=== PATIENT | female | born 1945 | race African-American/Black ===

== ENCOUNTER 2017-09-09 16:19 | Inpatient (IN) | payer MEDICARE, MEDICAID ==
[2017-09-09] MEDS ORDERED: NORMAL SALINE 1000 ML 1,000 ML IV PRN (16:28)
--- NOTE | 2017-09-09 16:29 | ER Document Report ---
ED General - General Stated Complaint: WEAKNESS Mode of Arrival: Stretcher Information source: Emergency Med Personnel TRAVEL OUTSIDE OF THE [place] IN LAST 30 DAYS: No - HPI Patient complains to provider of: Failure to thrive Onset/Duration: Gradual Quality of pain: Achy Severity: Mild Associated symptoms: Body/muscle aches, Weakness Exacerbated by: Denies Relieved by: Denies Notes: Patient is a 71-year-old female brought in by EMS and Adult Protective Services , presents to the emergency room today for possible failure to thrive, dehydration, she is basically bedbound at home, her recently suffered a stroke and has been in the hospital for the past 2 weeks, prognosis is poor for him, her 27-year-old autistic son has been attempting to care for Home, however patient does not appear to be well taking care of, as she appears to have lost some weight, she is contracted, she is dry, admits that she has not been eating or drinking as much as usual, and has had decreased urination, patient has no complaints at time of my exam initially, however after further questioning I was able to get this additional information, it was also supplied by the psychologist, Dr. Arshad who went out to the house to see patient today with law enforcement, patient does report generalized body aches and pains which are no different than her usual, denies any chest pain or shortness of breath, no abdominal pain, no nausea, vomiting or diarrhea - Related Data Allergies/Adverse Reactions: No Known Allergies Allergy (Verified 03/17/16 06:56) Home Medications: Current Home Medications Diclofenac Epolamine [Flector] 1 patch TD Q12 09/09/17 [History] Docusate Sodium [Colace 100 mg Capsule] 100 mg PO BID 09/09/17 [History] Tramadol HCl [Ultram 50 mg Tablet] 50 mg PO Q6HP PRN 09/09/17 [History] Past Medical History - General Information source: Patient - Social History Smoking Status: Never Smoker Family History: Reviewed & Not Pertinent Musculoskeltal Medical History: Reports Hx Arthritis - with significant contractures - RHEUMATOID ARTHRITIS Past Surgical History: Reports: Hx Cholecystectomy, Hx Hysterectomy - Immunizations Hx Diphtheria, Pertussis, Tetanus Vaccination: Yes Hx Pneumococcal Vaccination: 10/24/09 Review of Systems - Review of Systems Constitutional: See HPI EENT: No symptoms reported Cardiovascular: No symptoms reported Respiratory: No symptoms reported Gastrointestinal: Poor appetite, Poor fluid intake Genitourinary: See HPI Female Genitourinary: No symptoms reported Musculoskeletal: No symptoms reported Skin: No symptoms reported Hematologic/Lymphatic: No symptoms reported Neurological/Psychological: No symptoms reported -: Yes All other systems reviewed and negative Physical Exam - Vital signs Vitals: Pulse 89 09/09/17 16:25 Interpretation: Normal - General General appearance: Alert In distress: None Notes: Chronically ill-appearing - HEENT Head: Normocephalic, Atraumatic Eyes: Normal Conjunctiva: Normal Extraocular movements intact: Yes Eyelashes: Normal Pupils: PERRL Mucous membranes: Dry - Respiratory Respiratory status: No respiratory distress Chest status: Nontender Breath sounds: Normal Chest palpation: Normal - Cardiovascular Rhythm: Regular Heart sounds: Normal auscultation Murmur: No - Abdominal Inspection: Normal Distension: No distension Bowel sounds: Normal Tenderness: Nontender Organomegaly: No organomegaly - Back Back: Normal, Nontender - Extremities General upper extremity: Nontender, Normal color, Normal temperature, Other - Contracted General lower extremity: Nontender, Normal color, Normal temperature, Other - Contracted. No: Geo's sign - Neurological Neuro grossly intact: Yes Cognition: Normal Orientation: AAOx4 Doris Coma Scale Eye Opening: Spontaneous Haigler Coma Scale Verbal: Oriented Haigler Coma Scale Motor: Obeys Commands Haigler Coma Scale Total: 15 Speech: Normal Motor strength normal: LUE, RUE, LLE, RLE Sensory: Normal - Psychological Associated symptoms: Normal affect, Normal mood - Skin Skin Temperature: Warm Skin Moisture: Dry Skin Color: Normal Course - Re-evaluation Re-evalutation: 09/09/17 22:04 Patient was discussed with Dr. Kern who agrees to admit for dehydration with hypernatremia - Vital Signs Vital signs: Temp Pulse Resp BP Pulse Ox 98.1 F 89 20 122/71 100 09/09/17 16:58 09/09/17 16:25 09/09/17 21:01 09/09/17 21:01 09/09/17 17:01 - Laboratory Result Diagrams: 09/09/17 16:35 09/09/17 16:35 Laboratory results interpreted by me: 09/09/17 09/09/17 09/09/17 16:35 16:35 18:45 RBC 2.64 L Hgb 8.2 L Hct 23.2 L RDW 15.5 H Plt Count 129 L Sodium 150.9 H Potassium 3.5 L Chloride 116 H Carbon Dioxide 21 L Total Bilirubin 2.7 H Direct Bilirubin 1.1 H AST 52 H Alkaline Phosphatase 138 H Total Protein 8.9 H Urine Blood SMALL H Urine Urobilinogen 4.0 H - EKG Interpretation by Il EKG shows normal: Sinus rhythm Rate: Normal Rhythm: NSR Voltage: Consistant with LVH When compared to previous EKG there are: No significant change - Transfer of Care Care transferred to following provider: Concha Discharge - Discharge Clinical Impression: Dehydration Condition: Fair Disposition: ADMITTED INPATIENT Admitting Provider: Concha Unit Admitted: Medical Floor
[2017-09-09 16:55] LABS: HEMATOCRIT 23.2 % (36.0-47.0); HEMOGLOBIN 8.2 g/dL (12.0-15.5); HGB HCT DIFFERENCE 1.4; MEAN CORPUSCULAR HGB CONC 35.3 g/dL (32.0-36.0); MEAN CORPUSCULAR VOLUME 88 fl (80-97); RED BLOOD COUNT 2.64 10^6/uL (3.72-5.28); RED CELL DISTRIBUTION WIDTH 15.5 % (11.5-14.0)
[2017-09-09 17:10] LABS: ALANINE AMINOTRANSFERASE 20 U/L (9-52); ALBUMIN 3.6 g/dL (3.5-5.0); ALKALINE PHOSPHATASE 138 U/L (38-126); ANION GAP 14 (5-19); ASPARTATE AMINO TRANSFERASE 52 U/L (14-36); BILIRUBIN,DIRECT 1.1 mg/dL (0.0-0.4); BILIRUBIN,TOTAL 2.7 mg/dL (0.2-1.3); BLOOD UREA NITROGEN 12 mg/dL (7-20); CALCIUM 8.8 mg/dL (8.4-10.2); CARBON DIOXIDE 21 mmol/L (22-30); CHLORIDE 116 mmol/L (98-107); CREATINE KINASE 38 U/L (30-135); CREATININE RESULT 0.65 mg/dL (0.52-1.25); GLUCOSE 78 mg/dL (75-110); POTASSIUM 3.5 mmol/L (3.6-5.0); SODIUM 150.9 mmol/L (137-145); TOTAL PROTEIN 8.9 g/dL (6.3-8.2)
[2017-09-09 17:19] LABS: ABSOLUTE EOSINOPHILS# (MANUAL) 0.2 10^3/uL (0.0-0.6); BASOPHILS % (MANUAL) 0 % (0-2); EOSINOPHILS % (MANUAL) 2 % (0-6); LYMPHOCYTES % (MANUAL) 38 % (13-45); NUCLEATED RED BLOOD CELLS 13 /100 WBC (0); TOTAL CELLS COUNTED 100
[2017-09-09 17:21] LABS: CREATINE KINASE MB 0.74 ng/mL (<4.55)
[2017-09-09 17:22] LABS: ANISOCYTOSIS SLIGHT; OVALOCYTES SLIGHT; POIKILOCYTOSIS SLIGHT; SCHISTOCYTES 1+; TOXIC VACUOLATION PRESENT
[2017-09-09 17:23] LABS: TARGET CELLS 2+
[2017-09-09 17:25] LABS: WHITE BLOOD COUNT 7.5 10^3/uL (4.0-10.5)
[2017-09-09 17:30] LABS: TROPONIN I 0.051 ng/mL
--- NOTE | 2017-09-09 17:52 | RADIOLOGY REPORT (SQ) ---
EXAM DESCRIPTION: CHEST PA/LAT COMPLETED DATE/TIME: 09/09/2017 5:38 pm REASON FOR STUDY: cough COMPARISON: 10/23/2013 EXAM PARAMETERS: NUMBER OF VIEWS: two views TECHNIQUE: Digital Frontal and Lateral radiographic views of the chest acquired. RADIATION DOSE: NA LIMITATIONS: Patient positioning. FINDINGS: LUNGS AND PLEURA: No new opacities, masses or pneumothorax. No pleural effusion. MEDIASTINUM AND HILAR STRUCTURES: No masses or contour abnormalities. HEART AND VASCULAR STRUCTURES: Heart normal size. No evidence for failure. BONES: No acute findings. HARDWARE: None in the chest. OTHER: No other significant finding. IMPRESSION: NO ACUTE CARDIOPULMONARY PROCESS. NO SIGNIFICANT CHANGE FROM PRIOR STUDY. TECHNICAL DOCUMENTATION: JOB ID: [id number] [employer]- All Rights Reserved
[2017-09-09] MEDS ORDERED: NORMAL SALINE 250 ML IV PRN (19:00)
[2017-09-09 19:14] LABS: APPEARANCE,URINE CLEAR; BILIRUBIN,URINE NEGATIVE (NEGATIVE); GLUCOSE, URINE NEGATIVE (NEGATIVE); KETONES,URINE NEGATIVE (NEGATIVE); LEUKOCYTE ESTERASE,URINE NEGATIVE (NEGATIVE); NITRITE,URINE NEGATIVE (NEGATIVE); PROTEIN,URINE NEGATIVE (NEGATIVE); URINE SPECIFIC GRAVITY 1.009
--- NOTE | 2017-09-09 22:45 | EKG REPORT ---
SEVERITY:- ABNORMAL ECG - SINUS RHYTHM LEFT AXIS DEVIATION LEFT VENTRICULAR HYPERTROPHY : Confirmed by: Gustavo Stahl 09-Sep-2017 22:44:22
[2017-09-10] MEDS ORDERED: TRAMADOL HCL 50 MG TABLET PO PRN (00:36)
[2017-09-10] MEDS ORDERED: INFLUENZA ADLT QUAD (36MOS+) 2017-18 VAC 0.5 ML SYR IM PRN (04:10)
[2017-09-10] MEDS: LANSOPRAZOLE 30 MG TAB.RAP.DR PO SCH (06:28)
[2017-09-10] MEDS ORDERED: (PENDING PHARMACY ID) (Diclofenac Epolamine [Flector] 1 PATCH) TD SCH (10:00)
[2017-09-10] MEDS: DOCUSATE SODIUM 100 MG CAPSULE PO SCH ×2 (11:07→17:35)
[2017-09-10] MEDS: DEXTROSE 5%-NORMAL SALINE 1,000 ML IV PRN ×2 (11:07→22:06)
--- NOTE | 2017-09-10 11:09 | PDOC H&P ---
History of Present Illness Admission Date/PCP: 09/09/17 20:01 EVELINE SHIPLEY History of Present Illness: LOUISE FRANCO is a 71 year old female patient known to my practice who was brought to the ED by EMS and [facility] adult [facility] service She was due to worsening generalized weakness, inadequate oral intake and dehydration. Patient' s spouse was recently admitted to [facility] for stroke and independent living ability upon discharge is in question. Her spouse have been the main caregiver with few hours daily support through home health agency. Patient has been literally bedbound and in need of assistance for ADLs and IADL functions. She denied any chest pain, difficulty with breathing, coughing, fever or chills. No abdominal pain, nausea or vomiting. No dysuria or abdominal pain. No headache or dizziness. Her initial evaluation in the ED was remarkable for elevated serum sodium and pre-renal azotemia. She was advised admission for further evaluation and management. Past Medical History Musculoskeltal Medical History: Reports: Arthritis - with significant contractures - RHEUMATOID ARTHRITIS Psychiatric Medical History: Reports: Depression - anxiety Hematology: Reports: Anemia, Sickle Cell Disease - sickle cell trait Past Surgical History Past Surgical History: Reports: Cholecystectomy, Hysterectomy Social History Smoking Status: Never Smoker Frequency of Alcohol Use: None Hx Recreational Drug Use: No Drugs: None Hx Prescription Drug Abuse: No - Advance Directive Resuscitation Status: Full Code Family History Family History: Reviewed & Not Pertinent, CAD Parental Family History Reviewed: Yes Children Family History Reviewed: Yes Sibling(s) Family History Reviewed.: Yes Medication/Allergy Home Medications: Diclofenac Epolamine [Flector] 1 patch TD Q12 09/09/17 Docusate Sodium [Colace 100 mg Capsule] 100 mg PO BID 09/09/17 Tramadol HCl [Ultram 50 mg Tablet] 50 mg PO Q6HP PRN 09/09/17 Allergies/Adverse Reactions: No Known Allergies Allergy (Verified 03/17/16 06:56) Physical Exam Vital Signs: Temp Pulse Resp BP Pulse Ox 99.0 F 86 18 128/64 H 99 09/10/17 07:43 09/10/17 07:43 09/10/17 07:43 09/10/17 07:43 09/10/17 07:43 Intake & Output 09/09/17 09/10/17 09/11/17 06:59 06:59 06:59 Intake Total 582 Balance 582 Weight 29.2 kg General appearance: PRESENT: no acute distress, cooperative Head exam: PRESENT: atraumatic, normocephalic Eye exam: PRESENT: conjunctiva pink, EOMI, PERRLA. ABSENT: scleral icterus Ear exam: PRESENT: normal external ear exam Mouth exam: PRESENT: moist Teeth exam: PRESENT: poor dentation Cardiovascular exam: PRESENT: RRR. ABSENT: diastolic murmur, rubs, systolic murmur GI/Abdominal exam: PRESENT: normal bowel sounds, soft. ABSENT: distended, guarding, mass, organolmegaly, rebound, tenderness Extremities exam: ABSENT: full ROM, left AKA, right AKA, left BKA, right BKA, calf tenderness, joint swelling, pedal edema, tenderness, other Musculoskeletal exam: PRESENT: deformity - related to her rheumatoid arthritis Neurological exam: PRESENT: alert, awake, oriented to person, oriented to place , oriented to time, oriented to situation, CN II-XII grossly intact. ABSENT: motor sensory deficit Psychiatric exam: PRESENT: appropriate affect, normal mood. ABSENT: homicidal ideation, suicidal ideation Skin exam: PRESENT: dry, intact, warm. ABSENT: cyanosis, rash Results EKG Comments: I reviewed her laboratory report on [place] in my medical decision making. Impressions: Chest X-Ray 09/09/17 16:27 IMPRESSION: NO ACUTE CARDIOPULMONARY PROCESS. NO SIGNIFICANT CHANGE FROM PRIOR STUDY. Assessment & Plan - Diagnosis (1) Dehydration Is this a current diagnosis for this admission?: Yes Plan: See attending physician orders. (2) Adult failure to thrive syndrome Is this a current diagnosis for this admission?: Yes Plan: See attending physician orders. (3) Rheumatoid arthritis Qualifiers: Rheumatoid factor presence: unspecified presence Laterality: bilateral Is this a current diagnosis for this admission?: Yes Plan: See attending physician orders. (4) Chronic pain syndrome Is this a current diagnosis for this admission?: Yes Plan: See attending physician orders. - Time Time Spent: 50 to 70 Minutes Medications reviewed and adjusted accordingly: Yes Anticipated discharge: Other Within: Other - Inpatient Certification Based on my medical assessment, after consideration of the patient's comorbidities, presenting symptoms, or acuity I expect that the services needed warrant INPATIENT care.: Yes I certify that my determination is in accordance with my understanding of Medicare's requirements for reasonable and necessary INPATIENT services [42 CFR 412.3e].: Yes Medical Necessity: Need Close Monitoring Due to Risk of Patient Decompensation, Need For IV Fluids, Risk of Complication if Not Cared For in Hospital Post Hospital Care: D/C Assistant Front Desk Manager Documentation - Plan Summary Plan Summary: See attending physician orders.
[2017-09-10] MEDS ORDERED: POTASSIUM CHLORIDE 10 MEQ TABLET.SA PO ONE (11:11)
[2017-09-10 17:15] LABS: ANION GAP 12 (5-19); BLOOD UREA NITROGEN 6 mg/dL (7-20); CALCIUM 8.1 mg/dL (8.4-10.2); CARBON DIOXIDE 19 mmol/L (22-30); CHLORIDE 117 mmol/L (98-107); CREATININE RESULT 0.63 mg/dL (0.52-1.25); GLUCOSE 143 mg/dL (75-110); POTASSIUM 3.1 mmol/L (3.6-5.0); SODIUM 147.9 mmol/L (137-145)
[2017-09-11 05:39] LABS: HEMATOCRIT 19.7 % (36.0-47.0); MEAN CORPUSCULAR HEMOGLOBIN 31.2 pg (27.0-33.4); MEAN CORPUSCULAR HGB CONC 35.1 g/dL (32.0-36.0); MEAN CORPUSCULAR VOLUME 89 fl (80-97); RED BLOOD COUNT 2.22 10^6/uL (3.72-5.28); RED CELL DISTRIBUTION WIDTH 15.1 % (11.5-14.0)
[2017-09-11] MEDS: LANSOPRAZOLE 30 MG TAB.RAP.DR PO SCH (05:47)
[2017-09-11 06:07] LABS: ALANINE AMINOTRANSFERASE 20 U/L (9-52); ALBUMIN 2.4 g/dL (3.5-5.0); ALKALINE PHOSPHATASE 86 U/L (38-126); ANION GAP 10 (5-19); ASPARTATE AMINO TRANSFERASE 53 U/L (14-36); BILIRUBIN,DIRECT 0.4 mg/dL (0.0-0.4); BILIRUBIN,TOTAL 1.2 mg/dL (0.2-1.3); BLOOD UREA NITROGEN 6 mg/dL (7-20); CALCIUM 7.6 mg/dL (8.4-10.2); CARBON DIOXIDE 18 mmol/L (22-30); CHLORIDE 121 mmol/L (98-107); CREATININE RESULT 0.68 mg/dL (0.52-1.25); GLUCOSE 108 mg/dL (75-110); POTASSIUM 3.4 mmol/L (3.6-5.0); SODIUM 149.2 mmol/L (137-145); TOTAL PROTEIN 6.5 g/dL (6.3-8.2)
[2017-09-11 06:37] LABS: ABSOLUTE EOSINOPHILS# (MANUAL) 0.2 10^3/uL (0.0-0.6); BASOPHILS % (MANUAL) 0 % (0-2); EOSINOPHILS % (MANUAL) 2 % (0-6); LYMPHOCYTES % (MANUAL) 30 % (13-45); NUCLEATED RED BLOOD CELLS 3 /100 WBC (0); TOTAL CELLS COUNTED 100
[2017-09-11 06:41] LABS: ANISOCYTOSIS SLIGHT; OVALOCYTES SLIGHT; POIKILOCYTOSIS SLIGHT; SCHISTOCYTES SLIGHT; TARGET CELLS 2+
[2017-09-11 06:44] LABS: HEMOGLOBIN 6.9 g/dL (12.0-15.5)
[2017-09-11] MEDS: DEXTROSE 5%-NORMAL SALINE 1,000 ML IV PRN (10:36)
[2017-09-11] MEDS: DOCUSATE SODIUM 100 MG CAPSULE PO SCH ×2 (10:38→17:38)
--- NOTE | 2017-09-11 12:38 | PDOC PROGRESS REPORT ---
Subjective Progress Note for:: 09/11/17 Subjective:: Patient reported improvement in her clinical status. There is development of significant drop in her hemoglobin probably due to hemodilution from IV fluid infusion as well as possible chronic disease contribution. She denied any chest pain or difficulty with breathing. No abdominal pain, nausea or vomiting. No fever or chills. Physical Exam Vital Signs: Temp Pulse Resp BP Pulse Ox 99.0 F 96 16 138/85 H 98 09/11/17 07:41 09/11/17 07:41 09/11/17 07:41 09/11/17 07:41 09/11/17 07:41 Intake & Output 09/10/17 09/11/17 09/12/17 06:59 06:59 06:59 Intake Total 582 2146 Balance 582 2146 Weight 29.2 kg General appearance: PRESENT: no acute distress, cooperative Head exam: PRESENT: atraumatic, normocephalic Eye exam: PRESENT: conjunctiva pink, EOMI, PERRLA. ABSENT: scleral icterus Mouth exam: PRESENT: moist Respiratory exam: PRESENT: clear to auscultation sienna Cardiovascular exam: PRESENT: RRR. ABSENT: diastolic murmur, rubs, systolic murmur Vascular exam: PRESENT: normal capillary refill. ABSENT: pallor GI/Abdominal exam: PRESENT: normal bowel sounds, soft. ABSENT: distended, guarding, mass, organolmegaly, rebound, tenderness Extremities exam: ABSENT: pedal edema Musculoskeletal exam: PRESENT: deformity - related to contracture for rheumatoid arthritis deformities Neurological exam: PRESENT: alert, awake, oriented to person, oriented to place , oriented to time, oriented to situation, CN II-XII grossly intact. ABSENT: motor sensory deficit Psychiatric exam: PRESENT: appropriate affect, normal mood. ABSENT: homicidal ideation, suicidal ideation Skin exam: PRESENT: dry, intact, warm. ABSENT: cyanosis, rash Results Laboratory Results: 09/11/17 04:28 09/11/17 04:28 09/10/17 09/10/17 09/11/17 12:00 16:10 04:28 WBC 9.0 RBC 2.22 L Hgb 6.9 L Hct 19.7 L MCV 89 MCH 31.2 MCHC 35.1 RDW 15.1 H Plt Count 110 L Seg Neutrophils % Not Reportable Lymphocytes % Not Reportable Monocytes % Not Reportable Eosinophils % Not Reportable Basophils % Not Reportable Absolute Neutrophils Not Reportable Absolute Lymphocytes Not Reportable Absolute Monocytes Not Reportable Absolute Eosinophils Not Reportable Absolute Basophils Not Reportable Sodium 147.9 H Potassium 3.1 L Chloride 117 H Carbon Dioxide 19 L Anion Gap 12 BUN 6 L Creatinine 0.63 Est GFR ( Amer) > 60 Est GFR (Non-Af Amer) > 60 Glucose 143 H Calcium 8.1 L Magnesium 1.7 Total Bilirubin AST ALT Alkaline Phosphatase Total Protein Albumin Blood Type Antibody Screen 09/11/17 09/11/17 04:28 11:09 WBC RBC Hgb Hct MCV MCH MCHC RDW Plt Count Seg Neutrophils % Lymphocytes % Monocytes % Eosinophils % Basophils % Absolute Neutrophils Absolute Lymphocytes Absolute Monocytes Absolute Eosinophils Absolute Basophils Sodium 149.2 H Potassium 3.4 L Chloride 121 H Carbon Dioxide 18 L Anion Gap 10 BUN 6 L Creatinine 0.68 Est GFR ( Amer) > 60 Est GFR (Non-Af Amer) > 60 Glucose 108 Calcium 7.6 L Magnesium Total Bilirubin 1.2 AST 53 H ALT 20 Alkaline Phosphatase 86 Total Protein 6.5 Albumin 2.4 L Blood Type O POSITIVE Antibody Screen NEGATIVE Impressions: Chest X-Ray 09/09/17 16:27 IMPRESSION: NO ACUTE CARDIOPULMONARY PROCESS. NO SIGNIFICANT CHANGE FROM PRIOR STUDY. Assessment & Plan - Diagnosis (1) Dehydration Is this a current diagnosis for this admission?: Yes (2) Adult failure to thrive syndrome Is this a current diagnosis for this admission?: Yes (3) Rheumatoid arthritis Qualifiers: Rheumatoid factor presence: unspecified presence Laterality: bilateral Is this a current diagnosis for this admission?: Yes (4) Chronic pain syndrome Is this a current diagnosis for this admission?: Yes (5) Anemia of chronic disease Is this a current diagnosis for this admission?: Yes Plan: This was masked due to her dehydration upon admission. We will further evaluate as needed. (6) Anemia requiring transfusions Is this a current diagnosis for this admission?: Yes Plan: Patient will receive 2 units PRBC transfusion and post-transfusion CBC will direct need for further treatment. (7) Bacterial infection due to Proteus mirabilis Is this a current diagnosis for this admission?: Yes Plan: Urine culture did confirm Proteus mirabilis UTI. Start on IV Rocephin coverage base on sensitivity report on urine culture. - Time Time Spent with patient: 35 or more minutes Medications reviewed and adjusted accordingly: Yes Anticipated discharge: Home Within: Other - Inpatient Certification Based on my medical assessment, after consideration of the patient's comorbidities, presenting symptoms, or acuity I expect that the services needed warrant INPATIENT care.: Yes I certify that my determination is in accordance with my understanding of Medicare's requirements for reasonable and necessary INPATIENT services [42 CFR 412.3e].: Yes Medical Necessity: Need Close Monitoring Due to Risk of Patient Decompensation, Need For IV Fluids, Need For Continuous Telemetry Monitoring, Need for IV Antibiotics, Risk of Complication if Not Cared For in Hospital Post Hospital Care: D/C Email Designer Documentation - Plan Summary Plan Summary: See attending physician orders. I had extensive discussion with patient at bedside regarding disposition arrangement in view of her current home environment situation with her spouse of admission at [facility] for stroke and guarded prognosis for independent living when he is discharge.
[2017-09-11 22:32] LABS: HEMATOCRIT 33.1 % (36.0-47.0); HEMOGLOBIN 11.7 g/dL (12.0-15.5); MEAN CORPUSCULAR HEMOGLOBIN 31.9 pg (27.0-33.4); MEAN CORPUSCULAR HGB CONC 35.2 g/dL (32.0-36.0); MEAN CORPUSCULAR VOLUME 91 fl (80-97); RED BLOOD COUNT 3.66 10^6/uL (3.72-5.28); RED CELL DISTRIBUTION WIDTH 14.9 % (11.5-14.0); WHITE BLOOD COUNT 10.1 10^3/uL (4.0-10.5)
[2017-09-12] MEDS: LANSOPRAZOLE 30 MG TAB.RAP.DR PO SCH (06:06)
[2017-09-12] MEDS: DOCUSATE SODIUM 100 MG CAPSULE PO SCH ×2 (09:33→17:17)
[2017-09-12] MEDS: DEXTROSE 5%-NORMAL SALINE 1,000 ML IV PRN (10:54)
--- NOTE | 2017-09-12 10:57 | PDOC PROGRESS REPORT ---
Subjective Progress Note for:: 09/12/17 Subjective:: Patient is s/p 2 units PRBC transfusion. She denied any chest pain or difficulty with breathing. No abdominal pain, nausea or vomiting. No fever or chills. There is concern with blood pressure reading but it may be reflective of artifact due to developed muscle spasm and twitching during the blood pressure assessment procedure. Physical Exam Vital Signs: Temp Pulse Resp BP Pulse Ox 98.9 F 90 18 160/102 H 96 09/12/17 08:48 09/12/17 08:48 09/12/17 08:48 09/12/17 08:48 09/12/17 08:48 Intake & Output 09/11/17 09/12/17 09/13/17 06:59 06:59 06:59 Intake Total 2145 191 Balance 2145 191 Weight 29.2 kg Physical Exam: General appearance: PRESENT: no acute distress, cooperative Head exam: PRESENT: atraumatic, normocephalic Eye exam: PRESENT: conjunctiva pink, EOMI, PERRLA. ABSENT: scleral icterus Mouth exam: PRESENT: moist Respiratory exam: PRESENT: clear to auscultation sienna Cardiovascular exam: PRESENT: RRR. ABSENT: diastolic murmur, rubs, systolic murmur Vascular exam: PRESENT: normal capillary refill. ABSENT: pallor GI/Abdominal exam: PRESENT: normal bowel sounds, soft. ABSENT: distended, guarding, mass, organomegaly, rebound, tenderness Extremities exam: ABSENT: pedal edema Musculoskeletal exam: PRESENT: deformity - related to contracture for rheumatoid arthritis deformities Neurological exam: PRESENT: alert, awake, oriented to person, oriented to place , oriented to time, oriented to situation, CN II-XII grossly intact. ABSENT: motor sensory deficit Psychiatric exam: PRESENT: appropriate affect, normal mood. ABSENT: homicidal ideation, suicidal ideation Skin exam: PRESENT: dry, intact, warm. ABSENT: cyanosis, rash Results Laboratory Results: 09/11/17 22:13 09/11/17 04:28 09/11/17 09/11/17 11:09 22:13 WBC 10.1 RBC 3.66 L Hgb 11.7 L D Hct 33.1 L MCV 91 MCH 31.9 MCHC 35.2 RDW 14.9 H Plt Count 155 Blood Type O POSITIVE Antibody Screen NEGATIVE Impressions: Chest X-Ray 09/09/17 16:27 IMPRESSION: NO ACUTE CARDIOPULMONARY PROCESS. NO SIGNIFICANT CHANGE FROM PRIOR STUDY. Assessment & Plan - Diagnosis (1) Dehydration Is this a current diagnosis for this admission?: Yes (2) Adult failure to thrive syndrome Is this a current diagnosis for this admission?: Yes (3) Rheumatoid arthritis Qualifiers: Rheumatoid factor presence: unspecified presence Laterality: bilateral Is this a current diagnosis for this admission?: Yes (4) Chronic pain syndrome Is this a current diagnosis for this admission?: Yes (5) Anemia of chronic disease Is this a current diagnosis for this admission?: Yes (6) Anemia requiring transfusions Is this a current diagnosis for this admission?: Yes (7) Bacterial infection due to Proteus mirabilis Is this a current diagnosis for this admission?: Yes - Time Time Spent with patient: 25-34 minutes Medications reviewed and adjusted accordingly: Yes Anticipated discharge: Other Within: Other - Inpatient Certification Based on my medical assessment, after consideration of the patient's comorbidities, presenting symptoms, or acuity I expect that the services needed warrant INPATIENT care.: Yes I certify that my determination is in accordance with my understanding of Medicare's requirements for reasonable and necessary INPATIENT services [42 CFR 412.3e].: Yes Medical Necessity: Need Close Monitoring Due to Risk of Patient Decompensation, Need For IV Fluids, Need for IV Antibiotics, Risk of Complication if Not Cared For in Hospital Post Hospital Care: D/C Psych Social Worker Documentation - Plan Summary Plan Summary: See attending physician orders. Repeat CBC with diff and CMP in am.
[2017-09-12] MEDS: CEFTRIAXONE 1 GM/D5W RTU 1 GM/50 ML RTUPB IV SCH (12:37)
[2017-09-13] MEDS: DEXTROSE 5%-NORMAL SALINE 1,000 ML IV PRN ×3 (05:36→21:31)
[2017-09-13] MEDS: LANSOPRAZOLE 30 MG TAB.RAP.DR PO SCH (05:36)
[2017-09-13] MEDS: DOCUSATE SODIUM 100 MG CAPSULE PO SCH ×2 (10:37→17:07)
[2017-09-13] MEDS: CEFTRIAXONE 1 GM/D5W RTU 1 GM/50 ML RTUPB IV SCH (17:02)
--- NOTE | 2017-09-13 17:51 | PDOC PROGRESS REPORT ---
Subjective Progress Note for:: 09/13/17 Subjective:: Patient denied any chest pain or difficulty with breathing. No abdominal pain, nausea or vomiting. No fever or chills. She remain on IV Rocephin coverage. Further discussion with APS staff, Elsa, regarding her disposition took place since last clinical evaluation. Patient reported that she identified someone that can provide care privately to cover her 24/7 need. Physical Exam Vital Signs: Temp Pulse Resp BP Pulse Ox 98.6 F 80 22 H 176/82 H 100 09/13/17 07:34 09/13/17 07:34 09/13/17 07:34 09/13/17 07:34 09/13/17 07:34 Intake & Output 09/12/17 09/13/17 09/14/17 06:59 06:59 06:59 Intake Total 1914 1980 Output Total 3200 Balance 1914 -1220 Weight 29.2 kg Physical Exam: General appearance: PRESENT: no acute distress, cooperative Head exam: PRESENT: atraumatic, normocephalic Eye exam: PRESENT: conjunctiva pink, EOMI, PERRLA. ABSENT: scleral icterus Mouth exam: PRESENT: moist Respiratory exam: PRESENT: clear to auscultation sienna Cardiovascular exam: PRESENT: RRR. ABSENT: diastolic murmur, rubs, systolic murmur Vascular exam: PRESENT: normal capillary refill. ABSENT: pallor GI/Abdominal exam: PRESENT: normal bowel sounds, soft. ABSENT: distended, guarding, mass, organomegaly, rebound, tenderness Extremities exam: ABSENT: pedal edema Musculoskeletal exam: PRESENT: deformity - related to contracture for rheumatoid arthritis deformities Neurological exam: PRESENT: alert, awake, oriented to person, oriented to place , oriented to time, oriented to situation, CN II-XII grossly intact. ABSENT: motor sensory deficit Psychiatric exam: PRESENT: appropriate affect, normal mood. ABSENT: homicidal ideation, suicidal ideation Skin exam: PRESENT: dry, intact, warm. ABSENT: cyanosis, rash Results Laboratory Results: 09/11/17 22:13 09/11/17 04:28 Impressions: Chest X-Ray 09/09/17 16:27 IMPRESSION: NO ACUTE CARDIOPULMONARY PROCESS. NO SIGNIFICANT CHANGE FROM PRIOR STUDY. Assessment & Plan - Diagnosis (1) Dehydration Is this a current diagnosis for this admission?: Yes (2) Adult failure to thrive syndrome Is this a current diagnosis for this admission?: Yes (3) Rheumatoid arthritis Qualifiers: Rheumatoid factor presence: unspecified presence Laterality: bilateral Is this a current diagnosis for this admission?: Yes (4) Chronic pain syndrome Is this a current diagnosis for this admission?: Yes (5) Anemia of chronic disease Is this a current diagnosis for this admission?: Yes (6) Anemia requiring transfusions Is this a current diagnosis for this admission?: Yes (7) Bacterial infection due to Proteus mirabilis Is this a current diagnosis for this admission?: Yes - Time Time Spent with patient: 25-34 minutes Medications reviewed and adjusted accordingly: Yes Anticipated discharge: Home Within: within 48 hours - Inpatient Certification Based on my medical assessment, after consideration of the patient's comorbidities, presenting symptoms, or acuity I expect that the services needed warrant INPATIENT care.: Yes I certify that my determination is in accordance with my understanding of Medicare's requirements for reasonable and necessary INPATIENT services [42 CFR 412.3e].: Yes Medical Necessity: Need Close Monitoring Due to Risk of Patient Decompensation, Need For IV Fluids, Need For Continuous Telemetry Monitoring, Need for IV Antibiotics, Risk of Complication if Not Cared For in Hospital Post Hospital Care: D/C Sailing Officer Documentation - Plan Summary Plan Summary: Continue IV fluid support and antibiotic coverage. I will discuss with landscape architect and planner and APS to confirm stated arrange before discharge plan can be initiated. Maintain on all current medication management. Obtain CBC with diff and BMP in AM.
[2017-09-14 05:24] LABS: ABSOLUTE BASOPHILS # (AUTO) 0.1 10^3/uL (0.0-0.2); ABSOLUTE EOSINOPHILS # (AUTO) 0.5 10^3/uL (0.0-0.6); ABSOLUTE LYMPHOCYTES (AUTO) 2.9 10^3/uL (0.5-4.7); ABSOLUTE MONOCYTES (AUTO) 0.7 10^3/uL (0.1-1.4); ABSOLUTE NEUT (AUTO) 4.2 10^3/uL (1.7-8.2); BASOPHILS % (AUTO) 1.2 % (0-2); EOSINOPHILS % (AUTO) 5.8 % (0-6); HEMATOCRIT 31.6 % (36.0-47.0); HEMOGLOBIN 11.4 g/dL (12.0-15.5); HGB HCT DIFFERENCE 2.6; MEAN CORPUSCULAR HEMOGLOBIN 32.5 pg (27.0-33.4); MEAN CORPUSCULAR HGB CONC 36.1 g/dL (32.0-36.0); MEAN CORPUSCULAR VOLUME 90 fl (80-97); MONOCYTES % (AUTO) 8.3 % (3-13); RED BLOOD COUNT 3.51 10^6/uL (3.72-5.28); RED CELL DISTRIBUTION WIDTH 15.9 % (11.5-14.0); SEGMENTED NEUTROPHILS % (AUTO) 50.7 % (42-78)
[2017-09-14 05:30] LABS: ANION GAP 9 (5-19); BLOOD UREA NITROGEN 5 mg/dL (7-20); CALCIUM 7.3 mg/dL (8.4-10.2); CARBON DIOXIDE 19 mmol/L (22-30); CHLORIDE 120 mmol/L (98-107); CREATININE RESULT 0.56 mg/dL (0.52-1.25); GLUCOSE 93 mg/dL (75-110); POTASSIUM 3.3 mmol/L (3.6-5.0); SODIUM 148.4 mmol/L (137-145)
[2017-09-14] MEDS: LANSOPRAZOLE 30 MG TAB.RAP.DR PO SCH (05:40)
[2017-09-14 06:19] LABS: WHITE BLOOD COUNT 8.4 10^3/uL (4.0-10.5)
[2017-09-14] MEDS: DEXTROSE 5%-NORMAL SALINE 1,000 ML IV PRN ×2 (08:44→22:16)
[2017-09-14] MEDS: DOCUSATE SODIUM 100 MG CAPSULE PO SCH ×2 (13:51→17:25)
[2017-09-14] MEDS: CEFTRIAXONE 1 GM/D5W RTU 1 GM/50 ML RTUPB IV SCH (13:59)
--- NOTE | 2017-09-14 18:18 | PDOC PROGRESS REPORT ---
Subjective Progress Note for:: 09/14/17 Subjective:: Patient denied chest pain or difficulty with breathing. No abdominal pain, nausea or vomiting. No fever or chills. She remain on IV Rocephin coverage. Patient reported arranging for a private health care sanitary technician at home upon discharge. I will request for psychiatry consultation regarding her competency assessment. Physical Exam Vital Signs: Temp Pulse Resp BP Pulse Ox 98.7 F 80 22 H 160/75 H 97 09/14/17 11:58 09/14/17 11:58 09/14/17 11:58 09/14/17 11:58 09/14/17 11:58 Intake & Output 09/13/17 09/14/17 09/15/17 06:59 06:59 06:59 Intake Total 1980 3516 Output Total 3200 2220 Balance -1220 1296 Weight 29.2 kg Physical Exam: General appearance: PRESENT: no acute distress, cooperative Head exam: PRESENT: atraumatic, normocephalic Eye exam: PRESENT: conjunctiva pink, EOMI, PERRLA. ABSENT: scleral icterus Mouth exam: PRESENT: moist Respiratory exam: PRESENT: clear to auscultation sienna Cardiovascular exam: PRESENT: RRR. ABSENT: diastolic murmur, rubs, systolic murmur Vascular exam: PRESENT: normal capillary refill. ABSENT: pallor GI/Abdominal exam: PRESENT: normal bowel sounds, soft. ABSENT: distended, guarding, mass, organomegaly, rebound, tenderness Extremities exam: ABSENT: pedal edema Musculoskeletal exam: PRESENT: deformity - related to contracture for rheumatoid arthritis deformities Neurological exam: PRESENT: alert, awake, oriented to person, oriented to place , oriented to time, oriented to situation, CN II-XII grossly intact. ABSENT: motor sensory deficit Psychiatric exam: PRESENT: appropriate affect, normal mood. ABSENT: homicidal ideation, suicidal ideation Skin exam: PRESENT: dry, intact, warm. ABSENT: cyanosis, rash Results Laboratory Results: 09/14/17 04:04 09/14/17 04:04 09/14/17 09/14/17 04:04 04:04 WBC 8.4 RBC 3.51 L Hgb 11.4 L Hct 31.6 L MCV 90 MCH 32.5 MCHC 36.1 H RDW 15.9 H Plt Count 134 L Seg Neutrophils % 50.7 Lymphocytes % 34.0 Monocytes % 8.3 Eosinophils % 5.8 Basophils % 1.2 Absolute Neutrophils 4.2 Absolute Lymphocytes 2.9 Absolute Monocytes 0.7 Absolute Eosinophils 0.5 Absolute Basophils 0.1 Sodium 148.4 H Potassium 3.3 L Chloride 120 H Carbon Dioxide 19 L Anion Gap 9 BUN 5 L Creatinine 0.56 Est GFR ( Amer) > 60 Est GFR (Non-Af Amer) > 60 Glucose 93 Calcium 7.3 L Impressions: Chest X-Ray 09/09/17 16:27 IMPRESSION: NO ACUTE CARDIOPULMONARY PROCESS. NO SIGNIFICANT CHANGE FROM PRIOR STUDY. Assessment & Plan - Diagnosis (1) Dehydration Is this a current diagnosis for this admission?: Yes Plan: Improved with IV fluid support. (2) Adult failure to thrive syndrome Is this a current diagnosis for this admission?: Yes (3) Rheumatoid arthritis Qualifiers: Rheumatoid factor presence: unspecified presence Laterality: bilateral Is this a current diagnosis for this admission?: Yes (4) Chronic pain syndrome Is this a current diagnosis for this admission?: Yes (5) Anemia of chronic disease Is this a current diagnosis for this admission?: Yes (6) Anemia requiring transfusions Is this a current diagnosis for this admission?: Yes (7) Bacterial infection due to Proteus mirabilis Is this a current diagnosis for this admission?: Yes (8) Hypopotassemia Is this a current diagnosis for this admission?: Yes Plan: Patient will receive potassium replacement therapy. Obtain serum magnesium level. Repeat BMP in am. - Time Time Spent with patient: 25-34 minutes Medications reviewed and adjusted accordingly: Yes Anticipated discharge: Home Within: Other - Inpatient Certification Based on my medical assessment, after consideration of the patient's comorbidities, presenting symptoms, or acuity I expect that the services needed warrant INPATIENT care.: Yes I certify that my determination is in accordance with my understanding of Medicare's requirements for reasonable and necessary INPATIENT services [42 CFR 412.3e].: Yes Medical Necessity: Need Close Monitoring Due to Risk of Patient Decompensation, Need For IV Fluids, Need For Continuous Telemetry Monitoring, Need for IV Antibiotics, Risk of Complication if Not Cared For in Hospital Post Hospital Care: D/C Hearing Healthcare Practitioner Documentation - Plan Summary Plan Summary: Continue antibiotic therapy. Follow up on culture reports. Discussed with social melissa from [facility] regarding patient's spouse on admission at the facility. No new input. Patient need to agree to go to SNF as resident or APS need court sanction to place her in SNF. I will obtain psych consult for competency evaluation.
[2017-09-14] MEDS: POTASSIUM CHLORIDE 10 MEQ TABLET.SA PO SCH ×2 (22:17→23:46)
[2017-09-15] MEDS: LANSOPRAZOLE 30 MG TAB.RAP.DR PO SCH (06:06)
[2017-09-15 07:53] LABS: ANION GAP 9 (5-19); BLOOD UREA NITROGEN 7 mg/dL (7-20); CALCIUM 7.6 mg/dL (8.4-10.2); CARBON DIOXIDE 22 mmol/L (22-30); CHLORIDE 118 mmol/L (98-107); CREATININE RESULT 0.62 mg/dL (0.52-1.25); GLUCOSE 84 mg/dL (75-110); MAGNESIUM 1.5 mg/dL (1.6-2.3); POTASSIUM 4.4 mmol/L (3.6-5.0); SODIUM 148.8 mmol/L (137-145)
--- NOTE | 2017-09-15 10:30 | PDOC PROGRESS REPORT ---
Subjective Progress Note for:: 09/15/17 Subjective:: Patient is currently doing fair patient is a very contractured due to the rheumatoid arthritis and chronic pain Patient's currently on IV fluid and admitted because of the severe dehydration's Physical Exam Vital Signs: Temp Pulse Resp BP Pulse Ox 98.4 F 109 H 18 155/106 H 99 09/15/17 08:00 09/15/17 08:00 09/15/17 08:00 09/15/17 08:00 09/15/17 08:00 Intake & Output 09/14/17 09/15/17 09/16/17 06:59 06:59 06:59 Intake Total 3516 2385 Output Total 2220 2640 Balance 1296 -255 General appearance: PRESENT: no acute distress Eye exam: PRESENT: PERRLA Mouth exam: PRESENT: neck supple Respiratory exam: PRESENT: clear to auscultation sienna Cardiovascular exam: PRESENT: +S1, +S2 GI/Abdominal exam: PRESENT: normal bowel sounds, soft Extremities exam: ABSENT: pedal edema Additional comments: Contracture upper and lower extremity Neurological exam: PRESENT: alert, awake, oriented to person, oriented to place Results Laboratory Results: 09/14/17 04:04 09/15/17 07:22 09/14/17 09/15/17 04:04 07:22 Sodium 148.8 H Potassium 4.4 Chloride 118 H Carbon Dioxide 22 Anion Gap 9 BUN 7 Creatinine 0.62 Est GFR ( Amer) > 60 Est GFR (Non-Af Amer) > 60 Glucose 84 Calcium 7.6 L Magnesium 1.4 L 1.5 L Impressions: Chest X-Ray 09/09/17 16:27 IMPRESSION: NO ACUTE CARDIOPULMONARY PROCESS. NO SIGNIFICANT CHANGE FROM PRIOR STUDY. Assessment & Plan - Diagnosis (1) Hypertension Qualifiers: Hypertension type: unspecified Qualified Code(s): I10 - Essential (primary ) hypertension Is this a current diagnosis for this admission?: Yes Plan: The patient on Norvasc 2.5 mg p.o. twice a day (2) Anemia of chronic disease Is this a current diagnosis for this admission?: Yes Plan: Currently stable (3) Dehydration Is this a current diagnosis for this admission?: Yes Plan: Continues to IV fluid (4) Rheumatoid arthritis Qualifiers: Rheumatoid factor presence: unspecified presence Laterality: bilateral Is this a current diagnosis for this admission?: Yes (5) Adult failure to thrive syndrome Is this a current diagnosis for this admission?: Yes (6) Chronic pain syndrome Is this a current diagnosis for this admission?: Yes - Time Time Spent with patient: 15-24 minutes Medications reviewed and adjusted accordingly: Yes Anticipated discharge: Other Within: Other - Inpatient Certification Medical Necessity: Need For IV Fluids Post Hospital Care: D/C Neon Sign Maker Documentation - Plan Summary Plan Summary: See other MD orders
[2017-09-15] MEDS ORDERED: MAGNESIUM SULFATE/D5W 1 GM/100 ML RTUPB IV ONE (11:30)
[2017-09-15] MEDS: CEFTRIAXONE 1 GM/D5W RTU 1 GM/50 ML RTUPB IV SCH (11:50)
[2017-09-15] MEDS: DOCUSATE SODIUM 100 MG CAPSULE PO SCH ×2 (11:51→18:11)
[2017-09-15] MEDS: DEXTROSE 5%-NORMAL SALINE 1,000 ML IV PRN (18:13)
[2017-09-15] MEDS: AMLODIPINE BESYLATE 2.5 MG TABLET PO SCH (21:30)
[2017-09-16 05:21] LABS: ABSOLUTE BASOPHILS # (AUTO) 0.1 10^3/uL (0.0-0.2); ABSOLUTE EOSINOPHILS # (AUTO) 0.4 10^3/uL (0.0-0.6); ABSOLUTE MONOCYTES (AUTO) 0.6 10^3/uL (0.1-1.4); ABSOLUTE NEUT (AUTO) 4.1 10^3/uL (1.7-8.2); BASOPHILS % (AUTO) 0.7 % (0-2); EOSINOPHILS % (AUTO) 6.1 % (0-6); HEMATOCRIT 31.5 % (36.0-47.0); HEMOGLOBIN 11.3 g/dL (12.0-15.5); HGB HCT DIFFERENCE 2.4; LYMPHOCYTES % (AUTO) 27.7 % (13-45); MEAN CORPUSCULAR HEMOGLOBIN 32.2 pg (27.0-33.4); MEAN CORPUSCULAR HGB CONC 35.8 g/dL (32.0-36.0); MEAN CORPUSCULAR VOLUME 90 fl (80-97); MONOCYTES % (AUTO) 7.7 % (3-13); SEGMENTED NEUTROPHILS % (AUTO) 57.8 % (42-78); WHITE BLOOD COUNT 7.1 10^3/uL (4.0-10.5)
[2017-09-16] MEDS: LANSOPRAZOLE 30 MG TAB.RAP.DR PO SCH (05:32)
[2017-09-16 05:34] LABS: ANION GAP 9 (5-19); BLOOD UREA NITROGEN 11 mg/dL (7-20); CALCIUM 7.8 mg/dL (8.4-10.2); CARBON DIOXIDE 22 mmol/L (22-30); CHLORIDE 115 mmol/L (98-107); CREATININE RESULT 0.71 mg/dL (0.52-1.25); GLUCOSE 99 mg/dL (75-110); POTASSIUM 3.8 mmol/L (3.6-5.0); SODIUM 146.2 mmol/L (137-145)
[2017-09-16] MEDS: DOCUSATE SODIUM 100 MG CAPSULE PO SCH ×2 (09:04→17:59)
[2017-09-16] MEDS: AMLODIPINE BESYLATE 2.5 MG TABLET PO SCH ×2 (09:04→22:33)
--- NOTE | 2017-09-16 10:42 | PDOC PROGRESS REPORT ---
Subjective Progress Note for:: 09/16/17 Subjective:: Patient is currently doing fair Patient's p.o. intake is also fair Since blood pressure is coming down to 140 range after start taking the Norvasc Physical Exam Vital Signs: Temp Pulse Resp BP Pulse Ox 98.6 F 73 20 145/76 H 100 09/16/17 08:09 09/16/17 08:09 09/16/17 08:09 09/16/17 08:09 09/16/17 08:09 Intake & Output 09/15/17 09/16/17 09/17/17 06:59 06:59 06:59 Intake Total 2385 1878 Output Total 2640 1200 Balance -255 678 General appearance: PRESENT: no acute distress, other - Very contracture Eye exam: PRESENT: PERRLA Mouth exam: PRESENT: dry mucosa Respiratory exam: PRESENT: clear to auscultation sienna Cardiovascular exam: PRESENT: +S1, +S2 GI/Abdominal exam: PRESENT: normal bowel sounds, soft Extremities exam: PRESENT: pedal edema Neurological exam: PRESENT: alert, awake, oriented to person, oriented to place Psychiatric exam: PRESENT: anxious Results Laboratory Results: 09/16/17 04:05 09/16/17 04:05 09/16/17 09/16/17 04:05 04:05 WBC 7.1 RBC 3.50 L Hgb 11.3 L Hct 31.5 L MCV 90 MCH 32.2 MCHC 35.8 RDW 16.0 H Plt Count 125 L Seg Neutrophils % 57.8 Lymphocytes % 27.7 Monocytes % 7.7 Eosinophils % 6.1 H Basophils % 0.7 Absolute Neutrophils 4.1 Absolute Lymphocytes 2.0 Absolute Monocytes 0.6 Absolute Eosinophils 0.4 Absolute Basophils 0.1 Sodium 146.2 H Potassium 3.8 Chloride 115 H Carbon Dioxide 22 Anion Gap 9 BUN 11 Creatinine 0.71 Est GFR ( Amer) > 60 Est GFR (Non-Af Amer) > 60 Glucose 99 Calcium 7.8 L Impressions: Chest X-Ray 09/09/17 16:27 IMPRESSION: NO ACUTE CARDIOPULMONARY PROCESS. NO SIGNIFICANT CHANGE FROM PRIOR STUDY. Assessment & Plan - Diagnosis (1) Hypertension Qualifiers: Hypertension type: unspecified Qualified Code(s): I10 - Essential (primary ) hypertension Is this a current diagnosis for this admission?: Yes Plan: Currently all improving (2) Anemia of chronic disease Is this a current diagnosis for this admission?: Yes Plan: Currently stable (3) Dehydration Is this a current diagnosis for this admission?: Yes Plan: Continues to IV fluid (4) Rheumatoid arthritis Qualifiers: Rheumatoid factor presence: unspecified presence Laterality: bilateral Is this a current diagnosis for this admission?: Yes (5) Adult failure to thrive syndrome Is this a current diagnosis for this admission?: Yes (6) Chronic pain syndrome Is this a current diagnosis for this admission?: Yes - Time Time Spent with patient: 15-24 minutes Medications reviewed and adjusted accordingly: Yes Anticipated discharge: Other Within: Other - Inpatient Certification Medical Necessity: Need Close Monitoring Due to Risk of Patient Decompensation - Plan Summary Plan Summary: As to current medications
[2017-09-16] MEDS: CEFTRIAXONE 1 GM/D5W RTU 1 GM/50 ML RTUPB IV SCH (12:12)
[2017-09-16] MEDS: DEXTROSE 5%-NORMAL SALINE 1,000 ML IV PRN (16:30)
--- NOTE | 2017-09-16 17:55 | PSYCHOLOGICAL NOTE ---
Psych Note - Psych Note Psych Note: CAPACITY EVALUATION Initially met with Patient at her house when referred the case by DSS secondary to her being admitted to ICU at [facility] for a stroke and blood clot near the heart. He is in a medically induced coma and unlikely to recover. Patient was living with her grandson who was acting as her caregiver, but is Autistic and not capable of appropriately meeting her needs. Patient receives CAP Services 6 hours per day from 8a-12p and 5p-7p, and this is considered her maximum benefit. While at her home, I was accompanied by the Community Technical Training Instructor , Jean Ramirez, APS Workers Gunjan Tristan and her supervisor lending activities, Chu, and two CAP workers from [facility]. Upon entering the Patient's home, the Patient was found to be in her bed, virtually immobile and with her head angled at 60 degrees. On the bed with her was a plate of fried chicken, which her grandson Chidi was preparing to feed to her.Evaluation of Patient took place bedside in her home. Patient was laying in a hospital bed that was placed in the middle of her livingroom. She reported she was bedridden secondary to rheumatoid arthritis. She was covered in blankets with her hands under the covers. A portable telephone and a life alert necklace was placed on a table out of reach of the Patient. Patient advised her experienced a stroke 17 days prior and was transported to [facility] from [facility]. She also advised it took both she and her grandson some time to contact 911 on his behalf (per DSS, it took considerable time for the two to contact 911-grandson dialed 911 and pushed the call button while the Patient talked with dispatch and provided some information). Patient advised her had been the primary caregiver prior to his stroke. She reported since that time her grandson has been caring for her (i.e. feeding her -either assisting with calling a delivery tester food products or making her turkey sandwiches-, changing the television channel, doing the laundry, etc.). Patient reported she has CAP services through [facility], which allows for 6 hours per day of assistance. She reported they "move me in my bed." When asked about how she manages her bladder, she reported she uses an incontinence pad that is placed under her and the CAP staff replace it when they arrive. When asked how she manages her bladder they leave at 7pm, she reported she holds her bladder until they arrive again at 8am the next day. Patient's orientation was assessed and was accurate to her name, date of , age, current [place] President, state, city, approximate time of day, and location. She struggled with counting backwards by 7's from 100 and recalled 2/3 common objects. She was not physically capable of copying a figure or drawing the face of a clock. Assessment of both personal safety and the safety others was administered both verbally and in vivo. Patient was given a hypothetical question of what she would do if her grandson tripped on the extension cord in her livingroom and was knocked unconscious. She responded "I would have my neighbors look in on me." When reminded her grandson was lying on the floor unconscious, she stated she would "call 911." Again, she was reminded the phone was on a table out of her reach, which she immediately replied "I would have Chidi (rach) help me." She was reminded her Chidi was unconscious on the floor in this scenario. She was provided another scenario where she was asked what she would do if she started to choke on food that was fed to her by Chidi. She reported she would instruct Chidi to call 911 (despite the fact she is choking). To redirect the safety questions, the Patient was asked if she was capable of calling 911 without Chidi's assistance. She indicated she could. As such, the portable phone was placed within her reach on the bed and she was asked to demonstrate her ability to call 911. She was observed to take 20 minutes to remove her hands from under the sheets and blankets. Once clear, she was observed to struggle to grasp the telephone or to be able to push the buttons on the phone secondary to poor coordination. Additionally, she did not know which button was used to "call" once the number was dialed. MARY Ramirez pushed the button on the [employer] necklace and when doing so, activated the device for the first time. Once the device was activated, it was placed on the Patient's bed within her reach and she was asked to push the button and make a call. Again, she struggled to push the button but this time it was secondary to issues of weakness. As such, it was determined the Patient's safety awareness and physical abilities to implement safety techniques is severely impaired, and her reasoning and judgment regarding safety also impaired. Despite having RETAIL PLANNING MANAGER assistance, it is limited in nature and insufficient to meet the Patient's needs. Additionally, she reportedly does not qualify for any further hours. Patient reported her was responsible for paying the bills and and managing the household responsibilities. She indicated her grandson Chidi, who is 27 years of age, is "rule bound" and is helpful and very good at following her instructions. However, he does not drive, cook, use the microwave, understand how to use money and make or receive correct change, and does not leave the house unless it is with his grandfather. Patient reports she has maintained guardianship of Chidi since he was little, however, there is no paperwork on file in [facility] supporting this claim and she does not maintain any paperwork demonstrating official guardianship. Patient reported she has a 1/2 sister who lives in [place] but they do not have contact. Otherwise, Patient reported no other family except her daughter (Chidi's mother) who lives in [place] and again, there is no contact. During conversation with Patient, she was pleasant and cooperative while discussing services for her grandson, however, when discussion turned toward services and concern for her, she became argumentative, suspicious, and stated she was capable of managing with the assistance she had in place despite providing evidence to the contrary. While discussing medical concerns, she indicated there was none and again stated she could manage. Patient was observed to be dehydrated and she admitted to drinking very little fluids. She appeared to be a choking risk secondary to the head angle she maintained and her inability to reposition her head. She also admitted the staff from [facility] did not have her on a turn schedule, rather they only pulled her up in the and and changed her incontinence pad. She stated she recently had wound care for an open bed sore on her buttocks secondary to failure to be turned. Her arms were observed to be severely atrophied and waxy in appearance. She maintained poor coordination and her fine and gross motor skills impaired. She denied suicidal / homicidal ideation, intent or plan. She denied psychosis and no delusional thought processes were noted. Thought processes were slowed, linear and organized, and her rationality poor. Conversational speech was notable for slow rate, but within normal limits for tone and prosody. Intellectual abilities were estimated within the average range. Attention and conversation were within normal limits. Insight and judgment were poor while impulse control could not be assessed. Review of Patient's chart reveals she been admitted to [facility] for 7 days and remains dehydrated despite ongoing fluid intake. She is also diagnosed with chronic anemia and anemia requiring transfusions, and new onset hypertension. She continues to be bedridden and require 24-hour care to meet any of her basic needs (feeding, toileting, grooming, bathing, etc.). She is medically fragile and should she return home, any care provided by an outside agency reportedly can only be authorized for a maximum of 6 hours, which is not near enough to meet Patient's needs, even on a minimum level. Her insight, judgment, safety awareness, and physical ability to implement safety measures are severely impaired. Her decision making is impacted by her continued dehydration status. She is resistant to allowing others to help her and insists she is capable of performing functions that were proven to be outside her physical abilities. Thus , it is felt she could benefit from a guardian to assist in her decision making regarding her medical, personal, legal, and financial affairs at this time. DIAGNOSES 1. Major Neurocognitive Disorder, Due to Rheumatoid Arthritis 2. Rheumatoid Arthritis 3. Anemia, a Chronic Condition 4. Anemia requiring Transfusion 5. Hypertension RECOMMENDATIONS 1. Patient would benefit from the services of a Professional Guardian to assist her in making decisions regarding medical, legal, financial, and personal decision. She should be consulted regarding her preference in the decisions. 2. Patient is recommended for a head CT given the new onset of hypertension and the progression of her rheumatoid Arthritis. Based on results, consideration for follow with Neurology might be warranted. 3. Patient's physical and cognitive limitations prohibit her from returning home to live independently or even with just 6-7 hours of in home assistance. She is recommended for 24-hour supervised living environment where the facility can meet her basic needs and her complex medical needs. Patient's is unlikely to return home, leaving her without her natural caregiver. Her grandson Chidi is deemed unsafe as a caregiver following an independent evaluation. 4. DSS/APS Gunjan Tristan is involved in this case and can be contacted if questions arise. Thank you for this kind referral. Please contact [phone] if you have any questions.
[2017-09-17] MEDS: LANSOPRAZOLE 30 MG TAB.RAP.DR PO SCH (05:38)
[2017-09-17 07:19] LABS: ANION GAP 11 (5-19); BLOOD UREA NITROGEN 9 mg/dL (7-20); CALCIUM 7.5 mg/dL (8.4-10.2); CARBON DIOXIDE 20 mmol/L (22-30); CHLORIDE 115 mmol/L (98-107); CREATININE RESULT 0.56 mg/dL (0.52-1.25); GLUCOSE 94 mg/dL (75-110); POTASSIUM 3.8 mmol/L (3.6-5.0); SODIUM 145.5 mmol/L (137-145)
[2017-09-17] MEDS: DOCUSATE SODIUM 100 MG CAPSULE PO SCH ×2 (09:08→16:31)
[2017-09-17] MEDS: AMLODIPINE BESYLATE 2.5 MG TABLET PO SCH ×2 (09:08→22:46)
--- NOTE | 2017-09-17 10:07 | PDOC PROGRESS REPORT ---
Subjective Progress Note for:: 09/17/17 Subjective:: Patient is currently doing fair Patient's p.o. intake is also fair Since blood pressure is coming down to 140 range after start taking the Norvasc Physical Exam Vital Signs: Temp Pulse Resp BP Pulse Ox 99.0 F 85 12 147/82 H 98 09/17/17 08:32 09/17/17 08:32 09/17/17 08:32 09/17/17 08:32 09/17/17 08:32 Intake & Output 09/16/17 09/17/17 09/18/17 06:59 06:59 06:59 Intake Total 1878 2407 Output Total 1200 1350 Balance 678 1057 General appearance: PRESENT: no acute distress, other - Contracture Eye exam: PRESENT: PERRLA Mouth exam: PRESENT: neck supple Respiratory exam: PRESENT: clear to auscultation sienna Cardiovascular exam: PRESENT: +S1, +S2 GI/Abdominal exam: PRESENT: normal bowel sounds, soft Extremities exam: ABSENT: pedal edema Neurological exam: PRESENT: alert, awake, oriented to person, oriented to place , oriented to time Skin exam: PRESENT: dry Results Laboratory Results: 09/16/17 04:05 09/17/17 05:34 09/17/17 05:34 Sodium 145.5 H Potassium 3.8 Chloride 115 H Carbon Dioxide 20 L Anion Gap 11 BUN 9 Creatinine 0.56 Est GFR ( Amer) > 60 Est GFR (Non-Af Amer) > 60 Glucose 94 Calcium 7.5 L Impressions: Chest X-Ray 09/09/17 16:27 IMPRESSION: NO ACUTE CARDIOPULMONARY PROCESS. NO SIGNIFICANT CHANGE FROM PRIOR STUDY. Assessment & Plan - Diagnosis (1) Hypertension Qualifiers: Hypertension type: unspecified Qualified Code(s): I10 - Essential (primary ) hypertension Is this a current diagnosis for this admission?: Yes Plan: Currently all improving (2) Anemia of chronic disease Is this a current diagnosis for this admission?: Yes Plan: Currently stable (3) Dehydration Is this a current diagnosis for this admission?: Yes Plan: Continues to IV fluid (4) Rheumatoid arthritis Qualifiers: Rheumatoid factor presence: unspecified presence Laterality: bilateral Is this a current diagnosis for this admission?: Yes (5) Adult failure to thrive syndrome Is this a current diagnosis for this admission?: Yes (6) Chronic pain syndrome Is this a current diagnosis for this admission?: Yes - Time Time Spent with patient: 15-24 minutes Medications reviewed and adjusted accordingly: Yes Anticipated discharge: Other Within: Other - Inpatient Certification Medical Necessity: Need Close Monitoring Due to Risk of Patient Decompensation Post Hospital Care: D/C Mathematics Teacher Documentation - Plan Summary Plan Summary: His current medications
[2017-09-17] MEDS: CEFTRIAXONE 1 GM/D5W RTU 1 GM/50 ML RTUPB IV SCH (11:19)
[2017-09-18] MEDS: LANSOPRAZOLE 30 MG TAB.RAP.DR PO SCH (05:19)
[2017-09-18] MEDS: DEXTROSE 5%-NORMAL SALINE 1,000 ML IV PRN (05:19)
[2017-09-18 07:38] LABS: ANION GAP 9 (5-19); BLOOD UREA NITROGEN 11 mg/dL (7-20); CALCIUM 7.7 mg/dL (8.4-10.2); CARBON DIOXIDE 22 mmol/L (22-30); CHLORIDE 114 mmol/L (98-107); CREATININE RESULT 0.71 mg/dL (0.52-1.25); GLUCOSE 94 mg/dL (75-110); POTASSIUM 3.8 mmol/L (3.6-5.0); SODIUM 145.4 mmol/L (137-145)
[2017-09-18] MEDS: AMLODIPINE BESYLATE 2.5 MG TABLET PO SCH ×2 (09:47→21:22)
[2017-09-18] MEDS: DOCUSATE SODIUM 100 MG CAPSULE PO SCH ×2 (09:50→17:24)
--- NOTE | 2017-09-18 10:32 | PDOC PROGRESS REPORT ---
Subjective Progress Note for:: 09/18/17 Subjective:: Patient is currently doing fair Patient's p.o. intake is also fair Since blood pressure is coming down to 140 range after start taking the Norvasc Physical Exam Vital Signs: Temp Pulse Resp BP Pulse Ox 98.4 F 76 20 138/69 H 100 09/18/17 07:41 09/18/17 07:41 09/18/17 07:41 09/18/17 07:41 09/18/17 07:41 Intake & Output 09/17/17 09/18/17 09/19/17 06:59 06:59 06:59 Intake Total 2407 1798 Output Total 1350 2400 Balance 1057 -602 General appearance: PRESENT: no acute distress Eye exam: PRESENT: PERRLA Neck exam: ABSENT: JVD Respiratory exam: PRESENT: clear to auscultation sienna Cardiovascular exam: PRESENT: +S1, +S2 GI/Abdominal exam: PRESENT: normal bowel sounds, soft Extremities exam: ABSENT: pedal edema Additional comments: Contracture Neurological exam: PRESENT: alert, awake Results Laboratory Results: 09/16/17 04:05 09/18/17 06:05 09/18/17 06:05 Sodium 145.4 H Potassium 3.8 Chloride 114 H Carbon Dioxide 22 Anion Gap 9 BUN 11 Creatinine 0.71 Est GFR ( Amer) > 60 Est GFR (Non-Af Amer) > 60 Glucose 94 Calcium 7.7 L Impressions: Chest X-Ray 09/09/17 16:27 IMPRESSION: NO ACUTE CARDIOPULMONARY PROCESS. NO SIGNIFICANT CHANGE FROM PRIOR STUDY. Assessment & Plan - Diagnosis (1) Hypertension Qualifiers: Hypertension type: unspecified Qualified Code(s): I10 - Essential (primary ) hypertension Is this a current diagnosis for this admission?: Yes Plan: Currently all improving (2) Anemia of chronic disease Is this a current diagnosis for this admission?: Yes Plan: Currently stable (3) Dehydration Is this a current diagnosis for this admission?: Yes Plan: Continues to IV fluid (4) Rheumatoid arthritis Qualifiers: Rheumatoid factor presence: unspecified presence Laterality: bilateral Is this a current diagnosis for this admission?: Yes (5) Adult failure to thrive syndrome Is this a current diagnosis for this admission?: Yes (6) Chronic pain syndrome Is this a current diagnosis for this admission?: Yes - Time Time Spent with patient: 15-24 minutes Medications reviewed and adjusted accordingly: Yes Anticipated discharge: Home Within: Other - Inpatient Certification Medical Necessity: Significant Comorbidiites Make Outpatient Treatment Too Risky , Need Close Monitoring Due to Risk of Patient Decompensation Post Hospital Care: D/C Computer Application Developer Documentation - Plan Summary Plan Summary: Continues to current medications
[2017-09-18] MEDS: CEFTRIAXONE 1 GM/D5W RTU 1 GM/50 ML RTUPB IV SCH (11:00)
[2017-09-19] MEDS: DEXTROSE 5%-NORMAL SALINE 1,000 ML IV PRN (05:19)
[2017-09-19] MEDS: LANSOPRAZOLE 30 MG TAB.RAP.DR PO SCH (05:19)
[2017-09-19] MEDS: DOCUSATE SODIUM 100 MG CAPSULE PO SCH ×2 (10:26→17:01)
[2017-09-19] MEDS: AMLODIPINE BESYLATE 2.5 MG TABLET PO SCH ×2 (10:31→21:09)
--- NOTE | 2017-09-19 19:00 | PDOC PROGRESS REPORT ---
Subjective Progress Note for:: 09/19/17 Subjective:: Patient denied chest pain or difficulty with breathing. No abdominal pain, nausea or vomiting. No fever or chills. She remain on IV Rocephin coverage. Patient had psychologist evaluation since last clinical evaluation and from notation is considered incompetent in making rational decision regarding her safety at this time. Her daughter, Eliane Reynoso was at bedside with DSS worker at the time of my consultation tonight. She expressed willingness to get involve with patient care upon discharge. she will contact necessary agency for possible transfer of CAP service to appropriate [facility] in [place]. Reason For Visit: DEHYDRATION Physical Exam Vital Signs: Temp Pulse Resp BP Pulse Ox 98.8 F 86 22 H 151/71 H 100 09/19/17 16:24 09/19/17 16:24 09/19/17 16:24 09/19/17 16:24 09/19/17 16:24 Intake & Output 09/18/17 09/19/17 09/20/17 06:59 06:59 06:59 Intake Total 1798 2419 914 Output Total 2400 1700 800 Balance -602 719 114 Physical Exam: General appearance: PRESENT: no acute distress, cooperative, bed bound Head exam: PRESENT: atraumatic, normocephalic Eye exam: PRESENT: conjunctiva pink, EOMI, PERRLA. ABSENT: scleral icterus Mouth exam: PRESENT: moist Respiratory exam: PRESENT: clear to auscultation sienna Cardiovascular exam: PRESENT: RRR. ABSENT: diastolic murmur, rubs, systolic murmur Vascular exam: PRESENT: normal capillary refill. ABSENT: pallor GI/Abdominal exam: PRESENT: normal bowel sounds, soft. ABSENT: distended, guarding, mass, organomegaly, rebound, tenderness Extremities exam: ABSENT: pedal edema Musculoskeletal exam: PRESENT: deformity - related to severe contracture for rheumatoid arthritis deformities Neurological exam: PRESENT: alert, awake, oriented to person, oriented to place , oriented to time, oriented to situation, CN II-XII grossly intact. ABSENT: motor sensory deficit Psychiatric exam: PRESENT: appropriate affect, normal mood. ABSENT: homicidal ideation, suicidal ideation Skin exam: PRESENT: dry, intact, warm. ABSENT: cyanosis, rash Results Results Laboratory Results: 09/16/17 04:05 09/18/17 06:05 Impressions: Chest X-Ray 09/09/17 16:27 IMPRESSION: NO ACUTE CARDIOPULMONARY PROCESS. NO SIGNIFICANT CHANGE FROM PRIOR STUDY. Assessment & Plan - Diagnosis (1) Dehydration Is this a current diagnosis for this admission?: Yes (2) Adult failure to thrive syndrome Is this a current diagnosis for this admission?: Yes (3) Rheumatoid arthritis Qualifiers: Rheumatoid factor presence: unspecified presence Laterality: bilateral Is this a current diagnosis for this admission?: Yes (4) Chronic pain syndrome Is this a current diagnosis for this admission?: Yes (5) Anemia of chronic disease Is this a current diagnosis for this admission?: Yes (6) Anemia requiring transfusions Is this a current diagnosis for this admission?: Yes (7) Bacterial infection due to Proteus mirabilis Is this a current diagnosis for this admission?: Yes (8) Hypopotassemia Is this a current diagnosis for this admission?: Yes - Time Time Spent with patient: 35 or more minutes Medications reviewed and adjusted accordingly: Yes Anticipated discharge: Other - patient and daughter are looking into discharge home with appropriate 24/7 coverage arrangement. Within: Other - Inpatient Certification Based on my medical assessment, after consideration of the patient's comorbidities, presenting symptoms, or acuity I expect that the services needed warrant INPATIENT care.: Yes I certify that my determination is in accordance with my understanding of Medicare's requirements for reasonable and necessary INPATIENT services [42 CFR 412.3e].: Yes Medical Necessity: Need Close Monitoring Due to Risk of Patient Decompensation, Need For IV Fluids, Need For Continuous Telemetry Monitoring, Need for IV Antibiotics, Risk of Complication if Not Cared For in Hospital Post Hospital Care: D/C Bag Sorter Documentation - Plan Summary Plan Summary: D/C IV Rocephin coverage upon last dose today. Continue maintenance IV fluid coverage. Continue efforts at disposition plan. Obtain CBC with diff and BMP in am.
[2017-09-20] MEDS: DEXTROSE 5%-NORMAL SALINE 1,000 ML IV PRN (01:59)
[2017-09-20 05:30] LABS: ABSOLUTE BASOPHILS # (AUTO) 0.1 10^3/uL (0.0-0.2); ABSOLUTE EOSINOPHILS # (AUTO) 0.3 10^3/uL (0.0-0.6); ABSOLUTE LYMPHOCYTES (AUTO) 2.2 10^3/uL (0.5-4.7); ABSOLUTE MONOCYTES (AUTO) 0.5 10^3/uL (0.1-1.4); ABSOLUTE NEUT (AUTO) 4.4 10^3/uL (1.7-8.2); BASOPHILS % (AUTO) 1.2 % (0-2); EOSINOPHILS % (AUTO) 4.3 % (0-6); HEMATOCRIT 29.5 % (36.0-47.0); HEMOGLOBIN 10.4 g/dL (12.0-15.5); HGB HCT DIFFERENCE 1.7; MEAN CORPUSCULAR HGB CONC 35.4 g/dL (32.0-36.0); MEAN CORPUSCULAR VOLUME 91 fl (80-97); MONOCYTES % (AUTO) 6.3 % (3-13); RED BLOOD COUNT 3.25 10^6/uL (3.72-5.28); RED CELL DISTRIBUTION WIDTH 15.5 % (11.5-14.0); SEGMENTED NEUTROPHILS % (AUTO) 59.2 % (42-78); WHITE BLOOD COUNT 7.4 10^3/uL (4.0-10.5)
[2017-09-20] MEDS: LANSOPRAZOLE 30 MG TAB.RAP.DR PO SCH (05:39)
[2017-09-20 05:44] LABS: ANION GAP 10 (5-19); BLOOD UREA NITROGEN 8 mg/dL (7-20); CARBON DIOXIDE 21 mmol/L (22-30); CHLORIDE 114 mmol/L (98-107); CREATININE RESULT 0.48 mg/dL (0.52-1.25); GLUCOSE 91 mg/dL (75-110); POTASSIUM 3.7 mmol/L (3.6-5.0); SODIUM 145.1 mmol/L (137-145)
[2017-09-20] MEDS: DOCUSATE SODIUM 100 MG CAPSULE PO SCH ×2 (09:22→17:47)
[2017-09-20] MEDS: AMLODIPINE BESYLATE 2.5 MG TABLET PO SCH ×2 (09:22→21:44)
--- NOTE | 2017-09-20 20:09 | PDOC PROGRESS REPORT ---
Subjective Progress Note for:: 09/20/17 Subjective:: Patient denied chest pain or difficulty with breathing. No abdominal pain, nausea or vomiting. No fever or chills. I discussed efforts at disposition with Ynr Pope earlier today. We will continue to collaborate with APS and DSS to assist patient in her efforts to stay in the community as much as there are support services that can provide 24/7 coverage. Reason For Visit: DEHYDRATION Physical Exam Vital Signs: Temp Pulse Resp BP Pulse Ox 98.6 F 78 20 141/66 H 100 09/20/17 12:00 09/20/17 12:00 09/20/17 12:00 09/20/17 12:00 09/20/17 12:00 Intake & Output 09/19/17 09/20/17 09/21/17 06:59 06:59 06:59 Intake Total 2419 1794 600 Output Total 1700 2650 Balance 719 -856 600 Physical Exam: General appearance: PRESENT: no acute distress, cooperative, bed bound Head exam: PRESENT: atraumatic, normocephalic Eye exam: PRESENT: conjunctiva pink, EOMI, PERRLA. ABSENT: scleral icterus Mouth exam: PRESENT: moist Respiratory exam: PRESENT: clear to auscultation sienna Cardiovascular exam: PRESENT: RRR. ABSENT: diastolic murmur, rubs, systolic murmur Vascular exam: PRESENT: normal capillary refill. ABSENT: pallor GI/Abdominal exam: PRESENT: normal bowel sounds, soft. ABSENT: distended, guarding, mass, organomegaly, rebound, tenderness Extremities exam: ABSENT: pedal edema Musculoskeletal exam: PRESENT: deformity - related to severe contracture for rheumatoid arthritis deformities Neurological exam: PRESENT: alert, awake, oriented to person, oriented to place , oriented to time, oriented to situation, CN II-XII grossly intact. ABSENT: motor sensory deficit Psychiatric exam: PRESENT: appropriate affect, normal mood. ABSENT: homicidal ideation, suicidal ideation Skin exam: PRESENT: dry, intact, warm. ABSENT: cyanosis, rash Results Laboratory Results: 09/20/17 04:38 09/20/17 04:38 09/20/17 09/20/17 04:38 04:38 WBC 7.4 RBC 3.25 L Hgb 10.4 L Hct 29.5 L MCV 91 MCH 32.0 MCHC 35.4 RDW 15.5 H Plt Count 148 L Seg Neutrophils % 59.2 Lymphocytes % 29.0 Monocytes % 6.3 Eosinophils % 4.3 Basophils % 1.2 Absolute Neutrophils 4.4 Absolute Lymphocytes 2.2 Absolute Monocytes 0.5 Absolute Eosinophils 0.3 Absolute Basophils 0.1 Sodium 145.1 H Potassium 3.7 Chloride 114 H Carbon Dioxide 21 L Anion Gap 10 BUN 8 Creatinine 0.48 L Est GFR ( Amer) > 60 Est GFR (Non-Af Amer) > 60 Glucose 91 Calcium 8.0 L Impressions: Chest X-Ray 09/09/17 16:27 IMPRESSION: NO ACUTE CARDIOPULMONARY PROCESS. NO SIGNIFICANT CHANGE FROM PRIOR STUDY. Assessment & Plan - Diagnosis (1) Dehydration Is this a current diagnosis for this admission?: Yes (2) Adult failure to thrive syndrome Is this a current diagnosis for this admission?: Yes (3) Rheumatoid arthritis Qualifiers: Rheumatoid factor presence: unspecified presence Laterality: bilateral Is this a current diagnosis for this admission?: Yes (4) Chronic pain syndrome Is this a current diagnosis for this admission?: Yes (5) Anemia of chronic disease Is this a current diagnosis for this admission?: Yes (6) Anemia requiring transfusions Is this a current diagnosis for this admission?: Yes (7) Bacterial infection due to Proteus mirabilis Is this a current diagnosis for this admission?: Yes (8) Hypopotassemia Is this a current diagnosis for this admission?: Yes - Time Time Spent with patient: 25-34 minutes Medications reviewed and adjusted accordingly: Yes Anticipated discharge: Home - with available 24/7 support coverage provision upon discharge. - Inpatient Certification Based on my medical assessment, after consideration of the patient's comorbidities, presenting symptoms, or acuity I expect that the services needed warrant INPATIENT care.: Yes I certify that my determination is in accordance with my understanding of Medicare's requirements for reasonable and necessary INPATIENT services [42 CFR 412.3e].: Yes Medical Necessity: Need For IV Fluids, Need For Continuous Telemetry Monitoring , Need for IV Antibiotics, Risk of Complication if Not Cared For in Hospital Post Hospital Care: D/C Compensation Analyst Documentation - Plan Summary Plan Summary: Continue current management and disposition efforts.
[2017-09-21] MEDS: LANSOPRAZOLE 30 MG TAB.RAP.DR PO SCH (05:41)
[2017-09-21] MEDS: AMLODIPINE BESYLATE 2.5 MG TABLET PO SCH ×2 (10:42→21:58)
[2017-09-21] MEDS: DOCUSATE SODIUM 100 MG CAPSULE PO SCH ×2 (10:44→18:29)
--- NOTE | 2017-09-21 19:23 | PDOC PROGRESS REPORT ---
Subjective Progress Note for:: 09/21/17 Subjective:: No chest pain or difficulty with breathing. No abdominal pain, nausea or vomiting. No fever or chills. Reason For Visit: DEHYDRATION Physical Exam Vital Signs: Temp Pulse Resp BP Pulse Ox 98.7 F 80 18 135/61 H 100 09/21/17 12:00 09/21/17 12:00 09/21/17 12:00 09/21/17 12:00 09/21/17 12:00 Intake & Output 09/20/17 09/21/17 09/22/17 06:59 06:59 06:59 Intake Total 6258 314 6860 Output Total 2650 800 800 Balance -856 92 258 Physical Exam: General appearance: PRESENT: no acute distress, cooperative, bed bound Head exam: PRESENT: atraumatic, normocephalic Eye exam: PRESENT: conjunctiva pink, EOMI, PERRLA. ABSENT: scleral icterus Mouth exam: PRESENT: moist Respiratory exam: PRESENT: clear to auscultation sienna Cardiovascular exam: PRESENT: RRR. ABSENT: diastolic murmur, rubs, systolic murmur Vascular exam: PRESENT: normal capillary refill. ABSENT: pallor GI/Abdominal exam: PRESENT: normal bowel sounds, soft. ABSENT: distended, guarding, mass, organomegaly, rebound, tenderness Extremities exam: ABSENT: pedal edema Musculoskeletal exam: PRESENT: deformity - related to severe contracture for rheumatoid arthritis deformities Neurological exam: PRESENT: alert, awake, oriented to person, oriented to place , oriented to time, oriented to situation, CN II-XII grossly intact. ABSENT: motor sensory deficit Psychiatric exam: PRESENT: appropriate affect, normal mood. ABSENT: homicidal ideation, suicidal ideation Skin exam: PRESENT: dry, intact, warm. ABSENT: cyanosis, rash Results Laboratory Results: 09/20/17 04:38 09/20/17 04:38 Impressions: Chest X-Ray 09/09/17 16:27 IMPRESSION: NO ACUTE CARDIOPULMONARY PROCESS. NO SIGNIFICANT CHANGE FROM PRIOR STUDY. Assessment & Plan - Diagnosis (1) Dehydration Is this a current diagnosis for this admission?: Yes (2) Adult failure to thrive syndrome Is this a current diagnosis for this admission?: Yes (3) Rheumatoid arthritis Qualifiers: Rheumatoid factor presence: unspecified presence Laterality: bilateral Is this a current diagnosis for this admission?: Yes (4) Chronic pain syndrome Is this a current diagnosis for this admission?: Yes (5) Anemia of chronic disease Is this a current diagnosis for this admission?: Yes (6) Anemia requiring transfusions Is this a current diagnosis for this admission?: Yes (7) Bacterial infection due to Proteus mirabilis Is this a current diagnosis for this admission?: Yes (8) Hypopotassemia Is this a current diagnosis for this admission?: Yes - Time Time Spent with patient: 25-34 minutes Medications reviewed and adjusted accordingly: Yes Anticipated discharge: Home with Homehealth - Inpatient Certification Based on my medical assessment, after consideration of the patient's comorbidities, presenting symptoms, or acuity I expect that the services needed warrant INPATIENT care.: Yes I certify that my determination is in accordance with my understanding of Medicare's requirements for reasonable and necessary INPATIENT services [42 CFR 412.3e].: Yes Medical Necessity: Need Close Monitoring Due to Risk of Patient Decompensation, Need For IV Fluids, Need For Continuous Telemetry Monitoring, Risk of Complication if Not Cared For in Hospital Post Hospital Care: D/C Data Center Operator Documentation - Plan Summary Plan Summary: See attending orders. data recovery planner note appreciated. I did discuss with patient about [facility] transfer and she expressed further discussion with her daughter.
[2017-09-22] MEDS: LANSOPRAZOLE 30 MG TAB.RAP.DR PO SCH (05:54)
[2017-09-22] MEDS: AMLODIPINE BESYLATE 2.5 MG TABLET PO SCH ×2 (09:28→22:07)
[2017-09-22] MEDS: DOCUSATE SODIUM 100 MG CAPSULE PO SCH ×2 (09:28→18:11)
--- NOTE | 2017-09-22 19:27 | PDOC PROGRESS REPORT ---
Subjective Progress Note for:: 09/22/17 Subjective:: Further discussion with daughter and patient today regarding preparation for possible discharge to daughter's custody. No chest pain or difficulty with breathing. PO intake satisfactory with feeding assistance. No abdominal pain, nausea or vomiting. No fever or chills. Reason For Visit: DEHYDRATION Physical Exam Vital Signs: Temp Pulse Resp BP Pulse Ox 99.0 F 81 20 147/80 H 99 09/22/17 16:00 09/22/17 16:00 09/22/17 16:00 09/22/17 16:00 09/22/17 16:00 Intake & Output 09/21/17 09/22/17 09/23/17 06:59 06:59 06:59 Intake Total 892 2258 571 Output Total 800 2000 Balance 92 258 571 Weight 30 kg Physical Exam: General appearance: PRESENT: no acute distress, cooperative, bed bound Head exam: PRESENT: atraumatic, normocephalic Eye exam: PRESENT: conjunctiva pink, EOMI, PERRLA. ABSENT: scleral icterus Mouth exam: PRESENT: moist Respiratory exam: PRESENT: clear to auscultation sienna Cardiovascular exam: PRESENT: RRR. ABSENT: diastolic murmur, rubs, systolic murmur Vascular exam: PRESENT: normal capillary refill. ABSENT: pallor GI/Abdominal exam: PRESENT: normal bowel sounds, soft. ABSENT: distended, guarding, mass, organomegaly, rebound, tenderness Extremities exam: ABSENT: pedal edema Musculoskeletal exam: PRESENT: deformity - related to severe contracture for rheumatoid arthritis deformities Neurological exam: PRESENT: alert, awake, oriented to person, oriented to place , oriented to time, oriented to situation, CN II-XII grossly intact. ABSENT: motor sensory deficit Psychiatric exam: PRESENT: appropriate affect, normal mood. ABSENT: homicidal ideation, suicidal ideation Skin exam: PRESENT: dry, intact, warm. ABSENT: cyanosis, rash Results Laboratory Results: 09/20/17 04:38 09/20/17 04:38 Impressions: Chest X-Ray 09/09/17 16:27 IMPRESSION: NO ACUTE CARDIOPULMONARY PROCESS. NO SIGNIFICANT CHANGE FROM PRIOR STUDY. Assessment & Plan - Diagnosis (1) Dehydration Is this a current diagnosis for this admission?: Yes (2) Adult failure to thrive syndrome Is this a current diagnosis for this admission?: Yes (3) Rheumatoid arthritis Qualifiers: Rheumatoid factor presence: unspecified presence Laterality: bilateral Is this a current diagnosis for this admission?: Yes (4) Chronic pain syndrome Is this a current diagnosis for this admission?: Yes (5) Anemia of chronic disease Is this a current diagnosis for this admission?: Yes (6) Anemia requiring transfusions Is this a current diagnosis for this admission?: Yes (7) Bacterial infection due to Proteus mirabilis Is this a current diagnosis for this admission?: Yes (8) Hypopotassemia Is this a current diagnosis for this admission?: Yes - Time Time Spent with patient: 25-34 minutes Medications reviewed and adjusted accordingly: Yes Anticipated discharge: Home with Homehealth Within: Other - Inpatient Certification Based on my medical assessment, after consideration of the patient's comorbidities, presenting symptoms, or acuity I expect that the services needed warrant INPATIENT care.: Yes I certify that my determination is in accordance with my understanding of Medicare's requirements for reasonable and necessary INPATIENT services [42 CFR 412.3e].: Yes Medical Necessity: Need Close Monitoring Due to Risk of Patient Decompensation, Need For IV Fluids, Need For Continuous Telemetry Monitoring, Risk of Complication if Not Cared For in Hospital Post Hospital Care: D/C Order Booker Documentation - Plan Summary Plan Summary: Continue all current medication management and efforts at disposition.
[2017-09-23] MEDS: LANSOPRAZOLE 30 MG TAB.RAP.DR PO SCH (05:19)
[2017-09-23] MEDS: DOCUSATE SODIUM 100 MG CAPSULE PO SCH ×2 (09:17→17:38)
[2017-09-23] MEDS: AMLODIPINE BESYLATE 2.5 MG TABLET PO SCH ×2 (09:17→21:48)
--- NOTE | 2017-09-23 15:48 | PDOC PROGRESS REPORT ---
Subjective Progress Note for:: 09/23/17 Subjective:: Nursing staff reported satisfactory oral intake with feeding assistance. No chest pain or difficulty with breathing. No abdominal pain, nausea or vomiting. No fever or chills. Reason For Visit: DEHYDRATION Physical Exam Vital Signs: Temp Pulse Resp BP Pulse Ox 98.3 F 55 L 16 141/72 H 94 09/23/17 11:42 09/23/17 11:42 09/23/17 11:42 09/23/17 11:42 09/23/17 11:42 Intake & Output 09/22/17 09/23/17 09/24/17 06:59 06:59 06:59 Intake Total 2258 1081 Output Total 2000 500 Balance 258 581 Weight 30 kg Physical Exam: General appearance: PRESENT: no acute distress, cooperative, bed bound Head exam: PRESENT: atraumatic, normocephalic Eye exam: PRESENT: conjunctiva pink, EOMI, PERRLA. ABSENT: scleral icterus Mouth exam: PRESENT: moist Respiratory exam: PRESENT: clear to auscultation sienna Cardiovascular exam: PRESENT: RRR. ABSENT: diastolic murmur, rubs, systolic murmur Vascular exam: PRESENT: normal capillary refill. ABSENT: pallor GI/Abdominal exam: PRESENT: normal bowel sounds, soft. ABSENT: distended, guarding, mass, organomegaly, rebound, tenderness Extremities exam: ABSENT: pedal edema Musculoskeletal exam: PRESENT: deformity - related to severe contracture for rheumatoid arthritis deformities Neurological exam: PRESENT: alert, awake, oriented to person, oriented to place , oriented to time, oriented to situation, CN II-XII grossly intact. ABSENT: motor sensory deficit Psychiatric exam: PRESENT: appropriate affect, normal mood. ABSENT: homicidal ideation, suicidal ideation Skin exam: PRESENT: dry, intact, warm. ABSENT: cyanosis, rash Results Laboratory Results: 09/20/17 04:38 09/20/17 04:38 Impressions: Chest X-Ray 09/09/17 16:27 IMPRESSION: NO ACUTE CARDIOPULMONARY PROCESS. NO SIGNIFICANT CHANGE FROM PRIOR STUDY. Assessment & Plan - Diagnosis (1) Dehydration Is this a current diagnosis for this admission?: Yes (2) Adult failure to thrive syndrome Is this a current diagnosis for this admission?: Yes (3) Rheumatoid arthritis Qualifiers: Rheumatoid factor presence: unspecified presence Laterality: bilateral Is this a current diagnosis for this admission?: Yes (4) Chronic pain syndrome Is this a current diagnosis for this admission?: Yes (5) Anemia of chronic disease Is this a current diagnosis for this admission?: Yes (6) Anemia requiring transfusions Is this a current diagnosis for this admission?: Yes (7) Bacterial infection due to Proteus mirabilis Is this a current diagnosis for this admission?: Yes (8) Hypopotassemia Is this a current diagnosis for this admission?: Yes - Time Time Spent with patient: 25-34 minutes Medications reviewed and adjusted accordingly: Yes Anticipated discharge: Home Within: Other - Inpatient Certification Based on my medical assessment, after consideration of the patient's comorbidities, presenting symptoms, or acuity I expect that the services needed warrant INPATIENT care.: Yes I certify that my determination is in accordance with my understanding of Medicare's requirements for reasonable and necessary INPATIENT services [42 CFR 412.3e].: Yes Medical Necessity: Need Close Monitoring Due to Risk of Patient Decompensation, Risk of Complication if Not Cared For in Hospital Post Hospital Care: D/C Human Resource Management Instructor Documentation - Plan Summary Plan Summary: Continue all current medication management. daughter continue to arrange for [facility]dc care upon discharge with plan for discharge on 09/26/2017. I discussed case with site planner earlier today.
[2017-09-24] MEDS: LANSOPRAZOLE 30 MG TAB.RAP.DR PO SCH (05:51)
[2017-09-24] MEDS: DOCUSATE SODIUM 100 MG CAPSULE PO SCH ×2 (10:50→17:08)
[2017-09-24] MEDS: AMLODIPINE BESYLATE 2.5 MG TABLET PO SCH ×2 (10:52→22:07)
--- NOTE | 2017-09-24 18:09 | PDOC PROGRESS REPORT ---
Subjective Progress Note for:: 09/24/17 Subjective:: Patient is seen by the bedside there is no new complaints Reason For Visit: DEHYDRATION Physical Exam Vital Signs: Temp Pulse Resp BP Pulse Ox 98.6 F 88 16 132/60 H 97 09/24/17 16:12 09/24/17 16:12 09/24/17 16:12 09/24/17 16:12 09/24/17 16:12 Intake & Output 09/23/17 09/24/17 09/25/17 06:59 06:59 06:59 Intake Total 1081 840 Output Total 500 1225 Balance 581 -385 General appearance: PRESENT: thin Eye exam: PRESENT: PERRLA. ABSENT: scleral icterus Neck exam: PRESENT: full ROM Cardiovascular exam: PRESENT: RRR, +S1, +S2 Vascular exam: PRESENT: normal capillary refill GI/Abdominal exam: PRESENT: soft Rectal exam: PRESENT: deferred Neurological exam: PRESENT: alert. ABSENT: motor sensory deficit Skin exam: PRESENT: dry, intact, warm. ABSENT: cyanosis, rash Results Laboratory Results: 09/20/17 04:38 09/20/17 04:38 Impressions: Chest X-Ray 09/09/17 16:27 IMPRESSION: NO ACUTE CARDIOPULMONARY PROCESS. NO SIGNIFICANT CHANGE FROM PRIOR STUDY. Assessment & Plan - Diagnosis (1) Dehydration Is this a current diagnosis for this admission?: Yes (2) Anemia requiring transfusions Is this a current diagnosis for this admission?: Yes (3) Bacterial infection due to Proteus mirabilis Is this a current diagnosis for this admission?: Yes
[2017-09-25] MEDS: LANSOPRAZOLE 30 MG TAB.RAP.DR PO SCH (06:05)
[2017-09-25] MEDS: AMLODIPINE BESYLATE 2.5 MG TABLET PO SCH ×2 (10:15→21:36)
[2017-09-25] MEDS: DOCUSATE SODIUM 100 MG CAPSULE PO SCH ×2 (10:16→17:16)
--- NOTE | 2017-09-25 13:47 | PDOC PROGRESS REPORT ---
Subjective Progress Note for:: 09/25/17 Subjective:: Patient seen by the bedside no new complaints Reason For Visit: DEHYDRATION Physical Exam Vital Signs: Temp Pulse Resp BP Pulse Ox 98.4 F 79 16 142/76 H 97 09/25/17 11:35 09/25/17 11:35 09/25/17 11:35 09/25/17 11:35 09/25/17 11:35 Intake & Output 09/24/17 09/25/17 09/26/17 06:59 06:59 06:59 Intake Total 840 900 Output Total 1225 1150 Balance -385 -250 General appearance: PRESENT: no acute distress Eye exam: PRESENT: PERRLA Respiratory exam: PRESENT: clear to auscultation sienna Cardiovascular exam: PRESENT: +S1, +S2 GI/Abdominal exam: PRESENT: soft Results Laboratory Results: 09/20/17 04:38 09/20/17 04:38 Impressions: Chest X-Ray 09/09/17 16:27 IMPRESSION: NO ACUTE CARDIOPULMONARY PROCESS. NO SIGNIFICANT CHANGE FROM PRIOR STUDY. Assessment & Plan - Diagnosis (1) Dehydration Is this a current diagnosis for this admission?: Yes (2) Anemia requiring transfusions Is this a current diagnosis for this admission?: Yes (3) Bacterial infection due to Proteus mirabilis Is this a current diagnosis for this admission?: Yes
[2017-09-26] MEDS: LANSOPRAZOLE 30 MG TAB.RAP.DR PO SCH (05:03)
[2017-09-26] MEDS: AMLODIPINE BESYLATE 2.5 MG TABLET PO SCH ×2 (09:09→21:28)
[2017-09-26] MEDS: DOCUSATE SODIUM 100 MG CAPSULE PO SCH ×2 (09:10→17:23)
[2017-09-27] MEDS: LANSOPRAZOLE 30 MG TAB.RAP.DR PO SCH (05:04)
[2017-09-27] MEDS: AMLODIPINE BESYLATE 2.5 MG TABLET PO SCH (09:11)
[2017-09-27] MEDS: DOCUSATE SODIUM 100 MG CAPSULE PO SCH (09:11)
--- NOTE | 2017-09-27 10:27 | PDOC PROGRESS REPORT ---
Subjective Progress Note for:: 09/26/17 Subjective:: Patient daughter at bedside raised issue with transportation cost to [facility] upon discharge. Patient denied any pain or difficulty with breathing. No fever or chills. Tolerating oral feeding with feeding assistance. Reason For Visit: DEHYDRATION Physical Exam Vital Signs: Temp Pulse Resp BP Pulse Ox 98.9 F 79 16 136/72 H 99 09/26/17 16:00 09/26/17 16:00 09/26/17 16:00 09/26/17 16:00 09/26/17 16:00 Intake & Output 09/25/17 09/26/17 09/27/17 06:59 06:59 06:59 Intake Total 900 600 Output Total 1150 1300 Balance -250 -700 Physical Exam: General appearance: PRESENT: no acute distress, cooperative, bed bound Head exam: PRESENT: atraumatic, normocephalic Eye exam: PRESENT: conjunctiva pink, EOMI, PERRLA. ABSENT: scleral icterus Mouth exam: PRESENT: moist Respiratory exam: PRESENT: clear to auscultation sienna Cardiovascular exam: PRESENT: RRR. ABSENT: diastolic murmur, rubs, systolic murmur Vascular exam: PRESENT: normal capillary refill. ABSENT: pallor GI/Abdominal exam: PRESENT: normal bowel sounds, soft. ABSENT: distended, guarding, mass, organomegaly, rebound, tenderness Extremities exam: ABSENT: pedal edema Musculoskeletal exam: PRESENT: deformity - related to severe contracture for rheumatoid arthritis deformities Neurological exam: PRESENT: alert, awake, oriented to person, oriented to place , oriented to time, oriented to situation, CN II-XII grossly intact. ABSENT: motor sensory deficit Psychiatric exam: PRESENT: appropriate affect, normal mood. ABSENT: homicidal ideation, suicidal ideation Skin exam: PRESENT: dry, intact, warm. ABSENT: cyanosis, rash Results Laboratory Results: 09/20/17 04:38 09/20/17 04:38 Impressions: Chest X-Ray 09/09/17 16:27 IMPRESSION: NO ACUTE CARDIOPULMONARY PROCESS. NO SIGNIFICANT CHANGE FROM PRIOR STUDY. Assessment & Plan - Diagnosis (1) Dehydration Is this a current diagnosis for this admission?: Yes (2) Adult failure to thrive syndrome Is this a current diagnosis for this admission?: Yes (3) Rheumatoid arthritis Qualifiers: Rheumatoid factor presence: unspecified presence Laterality: bilateral Is this a current diagnosis for this admission?: Yes (4) Chronic pain syndrome Is this a current diagnosis for this admission?: Yes (5) Anemia of chronic disease Is this a current diagnosis for this admission?: Yes (6) Anemia requiring transfusions Is this a current diagnosis for this admission?: Yes (7) Bacterial infection due to Proteus mirabilis Is this a current diagnosis for this admission?: Yes (8) Hypopotassemia Is this a current diagnosis for this admission?: Yes - Time Time Spent with patient: 35 or more minutes Medications reviewed and adjusted accordingly: Yes Anticipated discharge: Home with Homehealth Within: within 24 hours - Inpatient Certification Based on my medical assessment, after consideration of the patient's comorbidities, presenting symptoms, or acuity I expect that the services needed warrant INPATIENT care.: Yes I certify that my determination is in accordance with my understanding of Medicare's requirements for reasonable and necessary INPATIENT services [42 CFR 412.3e].: Yes Medical Necessity: Need Close Monitoring Due to Risk of Patient Decompensation, Need For Continuous Telemetry Monitoring, Risk of Complication if Not Cared For in Hospital Post Hospital Care: D/C Seamless Tube Drawer Documentation - Plan Summary Plan Summary: I discussed case issues with Yrn Pope, tool planner director, she will assist in looking into disposition plan with regard to transportation cost. Patient have been bed bound before and all during hospitalization. Her new home is in [facility] due to inability to care for self and her safety.
[2017-09-27 13:14] VITALS: BP 117/74
--- NOTE | 2017-09-27 18:49 | PDOC DISCHARGE SUMMARY ---
General - Admit/Disc Date/PCP Admission Date/Primary Care Provider: 09/09/17 20:01 EVELINE SHPILEY Discharge Date: 09/27/17 - Discharge Diagnosis (1) Dehydration Is this a current diagnosis for this admission?: Yes (2) Adult failure to thrive syndrome Is this a current diagnosis for this admission?: Yes (3) Rheumatoid arthritis Is this a current diagnosis for this admission?: Yes (4) Chronic pain syndrome Is this a current diagnosis for this admission?: Yes (5) Anemia of chronic disease Is this a current diagnosis for this admission?: Yes (6) Anemia requiring transfusions Is this a current diagnosis for this admission?: Yes (7) Bacterial infection due to Proteus mirabilis Is this a current diagnosis for this admission?: Yes (8) Hypopotassemia Is this a current diagnosis for this admission?: Yes - Additional Information Resuscitation Status: Full Code Discharge Diet: Regular Discharge Activity: Activity As Tolerated Home Medications: Amlodipine Besylate [Norvasc 2.5 mg Tablet] 2.5 mg PO Q12 #60 tablet 09/27/17 Diclofenac Epolamine [Flector] 1 patch TD Q12 #60 patch.td12 09/27/17 Docusate Sodium [Colace 100 mg Capsule] 100 mg PO BID #60 capsule 09/27/17 Tramadol HCl [Ultram 50 mg Tablet] 50 mg PO Q6HP PRN #90 tablet 09/27/17 History of Present Illness History of Present Illness: LOUISE FRANCO is a 71 year old female patient known to my practice who was brought to the ED by EMS and [facility] adult protective service She was due to worsening generalized weakness, inadequate oral intake and dehydration. Patient' s spouse was recently admitted to [facility] for stroke and independent living ability upon discharge is in question. Her spouse have been the main caregiver with few hours daily support through home health agency. Patient has been literally bedbound and in need of assistance for ADLs and IADL functions. She denied any chest pain, difficulty with breathing, coughing, fever or chills. No abdominal pain, nausea or vomiting. No dysuria or abdominal pain. No headache or dizziness. Her initial evaluation in the ED was remarkable for elevated serum sodium and pre-renal azotemia. She was advised admission for further evaluation and management. Hospital Course Hospital Course: She was admitted for adult failure to thrive and dehydration following APS presentation of patient to the ED. She did respond to IV fluid support. There was concern for possible UTI for which she was treated with IV Rocephin coverage. Her urine culture was eventually grew Proteus Mirabilis sensitive to Rocephin. Patient was seen in consultation by psychologist, Jeancarlos Parish, due to concern about competency in making rational decision about her safety. Her [place] position was averted with the finding of her daughter who is willing to continue providing care for the patient in the community with some service support. She will be discharged to her care today with arrangement to continue medical care with home visit medical practice team in [place], [place]. Physical Exam Vital Signs: Temp Pulse Resp BP Pulse Ox 98.3 F 82 16 117/74 98 09/27/17 12:00 09/27/17 12:00 09/27/17 12:00 09/27/17 12:00 09/27/17 12:00 Intake & Output 09/26/17 09/27/17 09/28/17 06:59 06:59 06:59 Intake Total 600 285 Output Total 1300 1000 Balance -700 -715 Physical Exam: General appearance: PRESENT: no acute distress, cooperative, bed bound Head exam: PRESENT: atraumatic, normocephalic Eye exam: PRESENT: conjunctiva pink, EOMI, PERRLA. ABSENT: scleral icterus Mouth exam: PRESENT: moist Respiratory exam: PRESENT: clear to auscultation sienna Cardiovascular exam: PRESENT: RRR. ABSENT: diastolic murmur, rubs, systolic murmur Vascular exam: PRESENT: normal capillary refill. ABSENT: pallor GI/Abdominal exam: PRESENT: normal bowel sounds, soft. ABSENT: distended, guarding, mass, organomegaly, rebound, tenderness Extremities exam: ABSENT: pedal edema Musculoskeletal exam: PRESENT: deformity - related to severe contracture for rheumatoid arthritis deformities Neurological exam: PRESENT: alert, awake, oriented to person, oriented to place , oriented to time, oriented to situation, CN II-XII grossly intact. ABSENT: motor sensory deficit Psychiatric exam: PRESENT: appropriate affect, normal mood. ABSENT: homicidal ideation, suicidal ideation Skin exam: PRESENT: dry, intact, warm. ABSENT: cyanosis, rash Results Laboratory Results: 09/20/17 04:38 09/20/17 04:38 Impressions: Chest X-Ray 09/09/17 16:27 IMPRESSION: NO ACUTE CARDIOPULMONARY PROCESS. NO SIGNIFICANT CHANGE FROM PRIOR STUDY. Qualifiers PATEINT BEING DISCHARGED WITH ANY OF THE FOLLOWING DIAGNOSIS?: No Plan Discharge Plan: Discharge home to care of her daughter. Patient will be relocating to [place], [place]. Her future medical care diretive will be under her new found physician in [place]. I did inform daughter about steps to take in obtain patient's medical record form my practice and the hospital if needed.
== END 2017-09-27 16:10 | disposition home health service (06) | DRG 641 ==
LOC: ER 16:19 → EH 20:01 → 4N 21:40
PROVIDERS: ADMIT Internal Medicine Geriatric Medicine; ATTEND Internal Medicine Geriatric Medicine
PROC: 30233N1 Transfusion of Nonautologous Red Blood Cells into Peripheral Vein, Percutaneous Approach (ICD-10-PCS; principal; 2017-09-09)
DX: E86.0 Dehydration (principal); N39.0 Urinary tract infection, site not specified; R62.7 Adult failure to thrive; E87.0 Hyperosmolality and hypernatremia; E87.6 Hypokalemia; D63.8 Anemia in other chronic diseases classified elsewhere; G89.4 Chronic pain syndrome; B96.4 Proteus (mirabilis) (morganii) as the cause of diseases classified elsewhere; M06.9 Rheumatoid arthritis, unspecified; Z74.01 Bed confinement status
CPT/HCPCS: 36415; 36430; 71020; 80048; 80053; 81001; 82272; 82550; 82553; 83605; 83735; 84484; 85025; 85027; 86850; 86900; 86901; 86920; 87040; 87086; 87088; 87186; 93005; 93010; 99285; J0696; J3475; P9016